=== PATIENT | male | born 2005 | race Caucasian/White ===

== ENCOUNTER 2024-07-17 17:43 | Outpatient (CLI) | payer BC, SELFPAY | END 2024-07-17 17:44 | disposition home or self-care (01) | LOC: AMB 07-30 09:21 | PROVIDERS: Visit Provider Family Medicine | DX: I49.9 Cardiac arrhythmia, unspecified (principal) | CPT/HCPCS: A0425; A0427 ==

== ENCOUNTER 2024-07-17 18:20 | Emergency (ER) | payer BC, SELFPAY ==
[2024-07-17] VITALS (36 sets, daily range): BP systolic 94–134; BP diastolic 50–74; PULSE 79–125; RESP 20; TEMP 36.6; O2SAT 94–100; BMI 22.8
--- NOTE | 2024-07-17 18:41 | CRLHL7_ITS ---
For Patients: As a result of the Cures Act, medical imaging exams and procedure reports are released immediately into your electronic medical record. You may view this report before your referring provider. If you have questions, please contact your health care provider. INDICATION: Cardiac arrhythmia TECHNIQUE: Chest radiograph 2 views COMPARISON: None FINDINGS: Mediastinum: The mediastinum is normal in appearance. The heart silhouette is normal in size and morphology. A left cardiac defibrillator is noted. Lung: Both lungs are unremarkable in appearance. No sign of pleural effusion seen. No pneumothorax is identified. Bone and Soft tissue: Unremarkable for age. IMPRESSION: 1. No acute cardiopulmonary disease is seen. Dictated by Yusef Hamilton MD @ 07/17/2024 7:23:27 PM Dictated by: Yusef Hamilton MD @ 07/17/2024 19:25:54 (Electronically Signed)
--- NOTE | 2024-07-17 18:43 | ED_ITS ---
<Statement entered by Re Sneed MD - 07/18/24 16:45> I did not contribute to this document, no billing HPI - General Adult General Chief complaint: Arrhythmia/Palpitations Stated complaint: AED activation Time Seen by Provider: 07/17/24 18:25 Source: patient and EMS Mode of arrival: EMS Limitations: no limitations History of Present Illness HPI narrative: 18-year-old male presents to the emergency department for evaluation of defibrillator firing. This happened about 8 times in a consecutive just few minute. Shortly prior to arrival. He was engaged in room man take recreational activities with his girlfriend, she is a student at [employer]. He is up visiting from [place]. Patient has a very notable history of cardiomyopathy that was diagnosed in January. He initially started experiencing orthopnea and ultimately presented after about a week of this to the [facility] Emergency Department. 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 Defibrillator was just placed about 3 weeks ago. It has never previously fired. He had a follow-up echo on 07/03 and reports that his EF was right around 30% which per him is showing a little bit of improvement. He does not believe he has any history of valvular disease, he is not anticoagulated. He is feeling a little achy through the chest and back now but he attributes this to a defibrillator. He had no symptoms leading up to the firing of the defibrillator like shortness of breath or chest pain or syncope. His girlfriend was with him and actually felt the defibrillator fire as well. It is unclear if the defibrillator was detecting exertional tachycardia or an abnormal rhythm. I do not have the ability to interrogate the device here. He says that he has been well, no recent fevers, no trauma or injury. Does admit that he did not eat well today. He awoke at about 12 30 packed is things quickly and got on the road to see his girlfriend as planned. Has been taking his medications as prescribed. No prior similar episodes. Significant other appropriately called 911. Other than the cardiomyopathy and defibrillator placement, his past medical history is benign. Other than the defibrillator placement, no other surgeries. Medications are spironolactone, Entresto, Jardiance, metoprolol and torsemide. Nonsmoker. No recreational drugs. No alcohol. ROS is notable for the cardiovascular symptoms only, otherwise denies times 12 systems. Related Data Allergies Allergy/AdvReac Type Severity Reaction Status Date / Time No Known Drug Allergies Allergy Verified 07/17/24 18:27 Exam Const: Vital Signs, click to edit/add: Vital Signs - 24 hr 07/17/24 18:24 07/17/24 18:26 07/17/24 18:27 Temperature 98 F Pulse Rate 110 H 111 H Pulse Rate [Pulse Oximeter] 107 H Respiratory Rate 20 Blood Pressure 121/74 Blood Pressure [Le ft Upper Arm] 121/74 Pulse Oximetry 100 100 100 Oxygen Delivery Me thod Room Air 07/17/24 18:30 07/17/24 18:32 07/17/24 18:45 Temperature Pulse Rate 108 H 108 H 102 H Pulse Rate [Pulse Oximeter] Respiratory Rate Blood Pressure 107/66 Blood Pressure [Le ft Upper Arm] Pulse Oximetry 100 100 97 Oxygen Delivery Me thod 07/17/24 19:03 07/17/24 19:05 07/17/24 19:15 Temperature Pulse Rate 97 116 H 99 Pulse Rate [Pulse Oximeter] Respiratory Rate Blood Pressure 108/61 Blood Pressure [Le ft Upper Arm] Pulse Oximetry 99 100 100 Oxygen Delivery Me thod 07/17/24 19:30 07/17/24 19:35 07/17/24 19:45 Temperature Pulse Rate 93 116 H 125 H Pulse Rate [Pulse Oximeter] Respiratory Rate Blood Pressure Blood Pressure [Le ft Upper Arm] Pulse Oximetry 99 98 95 Oxygen Delivery Me thod 07/17/24 20:00 07/17/24 20:02 07/17/24 20:15 Temperature Pulse Rate 98 102 H 96 Pulse Rate [Pulse Oximeter] Respiratory Rate Blood Pressure 115/50 L Blood Pressure [Le ft Upper Arm] Pulse Oximetry 100 98 98 Oxygen Delivery Me thod 07/17/24 20:30 07/17/24 20:32 07/17/24 20:45 Temperature Pulse Rate 102 H 93 97 Pulse Rate [Pulse Oximeter] Respiratory Rate Blood Pressure 122/73 Blood Pressure [Le ft Upper Arm] Pulse Oximetry 99 98 94 Oxygen Delivery Me thod 07/17/24 21:00 07/17/24 21:01 07/17/24 21:15 Temperature Pulse Rate 86 89 85 Pulse Rate [Pulse Oximeter] Respiratory Rate Blood Pressure 100/58 L Blood Pressure [Le ft Upper Arm] Pulse Oximetry 99 98 98 Oxygen Delivery Me thod 07/17/24 21:30 07/17/24 21:33 07/17/24 21:45 Temperature Pulse Rate 90 96 101 H Pulse Rate [Pulse Oximeter] Respiratory Rate Blood Pressure 134/56 L Blood Pressure [Le ft Upper Arm] Pulse Oximetry 99 99 100 Oxygen Delivery Me thod 07/17/24 22:00 07/17/24 22:02 07/17/24 22:15 Temperature Pulse Rate 90 91 95 Pulse Rate [Pulse Oximeter] Respiratory Rate Blood Pressure 115/65 Blood Pressure [Le ft Upper Arm] Pulse Oximetry 96 98 98 Oxygen Delivery Me thod 07/17/24 22:30 07/17/24 22:32 07/17/24 22:45 Temperature Pulse Rate 95 89 93 Pulse Rate [Pulse Oximeter] Respiratory Rate Blood Pressure 113/69 Blood Pressure [Le ft Upper Arm] Pulse Oximetry 99 98 98 Oxygen Delivery Me thod 07/17/24 23:00 07/17/24 23:01 07/17/24 23:15 Temperature Pulse Rate 87 88 93 Pulse Rate [Pulse Oximeter] Respiratory Rate Blood Pressure 105/63 Blood Pressure [Le ft Upper Arm] Pulse Oximetry 95 96 98 Oxygen Delivery Me thod 07/17/24 23:30 07/17/24 23:32 07/17/24 23:45 Temperature Pulse Rate 84 79 96 Pulse Rate [Pulse Oximeter] Respiratory Rate Blood Pressure 94/70 Blood Pressure [Le ft Upper Arm] Pulse Oximetry 98 98 99 Oxygen Delivery Me thod Documenting provider has reviewed patient's vital signs: yes Common normals: no apparent distress and alert General appearance: well kempt Other: Friendly, cooperative, no signs of intoxication. Great historian. HENMT: Common normals: normocephalic, moist oral mucous membranes and oropharynx normal Head and scalp: normocephalic Mouth: oral and palatal mucosa normal Eye: Common normals: conjunctivae normal General eye: normal appearance of both eyes Conjunctiva: conjunctiva(e) normal Neck & C-Spine: Common normals: full ROM and no lymphadenopathy Chest: Other: Surgical scarring on the chest consistent with recent AICD placement but looks great. No surrounding redness, drainage, healing well. Resp: Common normals: normal respiratory effort, no use of accessory muscles and clear to auscultation bilaterally Effort & inspection: able to speak in complete sentences Auscultation: clear to auscultation bilaterally Cardio: Common normals: regular rate, regular rhythm, S1 normal heart sound, S2 normal heart sound and no murmurs Rate: regular rate Rhythm: regular rhythm Heart sounds: S1 normal and S2 normal GI: Common normals: Normal to inspection, nondistended, normoactive bowel sounds present, soft to palpation, non-tender, no hepatosplenomegaly and no masses Palpation: soft and no hepatosplenomegaly Extremity: Common normals: normal to inspection and no pedal edema Neuro: Common normals: moves all extremities Sensorium/orientation: alert Psych: Appearance: well kempt Attitude: engaged Insight: insight good Judgement: judgment good Skin: Common normals: no rashes or lesions noted General skin exam: no rashes or lesions noted Course Course ED Course: 18-year-old male with history of cardiomyopathy, defibrillator fired about 8 times. I question whether this was an arrhythmia or exertional tachycardia that triggered his defibrillator. I have called [facility] for advice and guidance. In the meantime, basic metabolic panel, CBC, EKG, environmental monitoring technician. Will give a 500 mL normal saline bolus and obtain chest x-ray to look for any signs of overt heart failure. Await recommendations. Reevaluation(s) Time of Reevaluation #1: 23:59 Reevaluation #1: Patient has remained in sinus rhythm, current rate is around 90. He has remained asymptomatic and has had no further firing of his defibrillator. Phill soriano, after speaking with the [facility] triage nurse, call was placed at 6:42 p.m.. It took about an hour to receive the initial call back and it was recommended that we attempt to interrogate his device. We do not have the technology for this and this was relayed to them at the initial call. He has a remote transmission device back in [place]. We were able to send a family friend down to the [place] to retrieve the device and bring it to us. This of course was a couple of hour delay. Patient had not finished setting up the device and ultimately this had to be done prior to attempts to interrogate remotely. Several calls to [facility] [employer] and to the [facility] triage line were made. Ultimately, they have recommended now that we transfer the patient for adjustment of the defibrillator. Based on 6 different phone calls, I have spent 2-1/2 hours of direct management time on this patient in critical care time where I was unable to care for other patients during this time. Counseled patient on the recommendations from the cardiac triage officer. Ambulance transfer was recommended and offered, he declines this at this time and will be going by private car. Per the triage nurse, I do not need to call the ED in advance. Patient will be discharged from our facility to go directly to [facility] ED in [place]. Vital Signs Vital signs: Initial Vital Signs Pulse Rate 110 H 07/17/24 18:24 Blood Pressure 121/74 07/17/24 18:24 Blood Pressure Mean 89 07/17/24 18:24 Pulse Oximetry 100 07/17/24 18:24 Vital Signs Pulse Rate 110 H 07/17/24 18:24 Blood Pressure 121/74 07/17/24 18:24 Pulse Oximetry 100 07/17/24 18:24 Temperature 98 F 07/17/24 18:27 Pulse Rate 96 07/17/24 23:45 Respiratory Rate 20 07/17/24 18:27 Blood Pressure 94/70 07/17/24 23:32 Pulse Oximetry 99 07/17/24 23:45 Oxygen Delivery Method Room Air 07/17/24 18:27 Medications Administered Medications: Discontinued Medications Generic Name Dose Route Start Last Admin Trade Name Freq PRN Reason Stop Dose Admin Sodium Chloride 500 mls @ 500 mls/hr 07/17/24 18:40 07/17/24 20:20 0.9 % Sodium Chloride 500 Ml IV 07/17/24 19:39 Infused .Q1H ONE Infusion Medical Decision Making Lab Data Lab results reviewed: Yes I reviewed the patient's lab results Lab results narrative: Labs all reassuring. Labs: Lab Results 07/17/24 Range/Units 19:08 WBC 9.12 (4.50-11.00) K/uL RBC 5.16 (4.30-5.90) m/uL Hgb 14.9 (13.5-17.5) gm/dL Hct 43.7 (37.0-53.0) % MCV 85 (80-100) fL MCH 29 (26-34) pg MCHC 34 (32-36) gm/dL RDW Coeff of Odilia 12.0 (11.5-15.5) % Plt Count 248 (140-440) K/uL Neut % (Auto) 75.9 H (42.0-72.0) % Lymph % (Auto) 16.0 L (20-44) % Grainger % (Auto) 6.7 (0.0-11.0) % Eos % (Auto) 0.8 (0.0-7.0) % Baso % (Auto) 0.3 (0.0-3.0) % Neut # (Auto) 6.90 (1.7-7.0) K/uL Lymph # (Auto) 1.50 (0.90-2.90) K/uL Grainger # (Auto) 0.60 (0.00-0.90) K/UL Eos # (Auto) 0.07 (0.00-0.50) K/uL Baso # (Auto) 0.03 (0.00-0.30) K/uL Abs Immat Gran (auto) 0.03 (0.00-0.30) K/uL Imm/Tot Granulo (auto) 0.3 % Sodium 138 (135-149) mmol/L Potassium 3.2 L (3.6-5.1) mmol/L Chloride 101 (96-114) mmol/L Carbon Dioxide 25 (20-32) mmol/L Anion Gap 12 (7-15) mEq/L BUN 17 (5-24) mg/dL Creatinine 1.2 (0.5-1.5) mg/dL Estimated Creat Clear 94.50 Estimated GFR 89 ml/min Glucose 103 (60-115) mg/dL Calcium 10.1 (8.4-10.6) mg/dL NT-Pro-B Natriuret Pep 1530 pg/mL Imaging Data Chest x-ray: Attestation: I have reviewed the pertinent imaging results. My impression: Other than some mild cardiomegaly, normal chest x-ray. No pulmonary edema or pleural effusions Radiologist's impression: IMPRESSION: 1. No acute cardiopulmonary disease is seen. Dictated by Yusef Hamilton MD @ 07/17/2024 7:23:27 PM ECG Data Attestation: I personally reviewed and interpreted this ECG as follows: Prior ECG tracings: not available for review Interpretation: Sinus tachycardia with a rate of 103. Definitely criteria for LVH and some repolarization changes that I suspect are chronic in nature. Unfortunately do not have a comparison EKG but I do not suspect that this is ischemia. Discharge Plan Discharge Clinical Impression: Disorder of defibrillator function Patient Disposition: [facility] Emergency Department Hospital Discharge Location: [facility] Condition: Stable Additional Instructions: Thank you for having someone retrieve your transmission device. After consult with the team from [employer] and ultimately relaying information to the [facility] team, they have now recommended that you come to the emergency department to have adjustments made to your defibrillator. This was at the recommendation of france Cash and working with the triage nurse, Ramy. Please relay this information to the ER team, as it will likely help them find those notes faster. You were offered ambulance transport to [facility], you have elected to go by private car. Please go directly to the emergency department. If you have difficulty in the interim, the number is [phone]. The [facility] number is [phone], they can give you additional feedback regarding the flashing box that you are seeing on your device. Activity Level: Activity as Tolerated Discharge Diet: Regular
[2024-07-17 19:14] LABS: Basophils Absolute Auto 0.03 K/uL (0.00-0.30); Basophils Percent Auto 0.3 % (0.0-3.0); Eosinophils Absolute Auto 0.07 K/uL (0.00-0.50); Eosinophils Percent Auto 0.8 % (0.0-7.0); Hematocrit 43.7 % (37.0-53.0); Hemoglobin* 14.9 gm/dL (13.5-17.5); Immature Granulocytes Abs Auto 0.03 K/uL (0.00-0.30); Immature Granulocytes Pct Auto 0.3 %; Mean Corpuscular HGB Conc 34 gm/dL (32-36); Mean Corpuscular Hemoglobin 29 pg (26-34); Mean Corpuscular Volume 85 fL (80-100); Monocytes Percent Auto 6.7 % (0.0-11.0); Neutrophils Percent Auto 75.9 % (42.0-72.0); Platelet Count* 248 K/uL (140-440); Red Blood Count 5.16 m/uL (4.30-5.90); Slide Review Reflex No; White Blood Count* 9.12 K/uL (4.50-11.00)
[2024-07-17] MEDS: 0.9 % SODIUM CHLORIDE 500 ML 500 ML IV (19:17)
--- OUTSIDE RECORDS SUMMARY | 2024-07-17 19:27 | XMS_ITS ---
Author Organization [facility] Address [address] [place] [address] Care Team Providers Care Housing Assistant Property Manager Name Role Phone Unavailable Unavailable Unavailable Surgery Details Not on file Complications Check Surgery Details section. Procedure Estimated Blood Loss Check Surgery Details section. Procedure Findings Check Surgery Details section. Procedure Specimens Taken Check Surgery Details section.
--- OUTSIDE RECORDS SUMMARY | 2024-07-17 19:27 | XMS_ITS | Encounter Summary ---
Author Organization [facility] Address [address] [place] [id number] Care Team Providers Care Spot Machine Operator Name Role Phone Subha Benito M.D., M.S. Primary Care Provide r Encounter Details Date Type Department Care Team (Latest Contact Info) Description 07/10/2024 9:39 AM POLICE CAPTAIN [employer]CINCT - 07/10/2024 11:59 PM POLICE CAPTAIN PRECINCT Hospital Encounter Department of Cardiovascular Diseases in [place], [place] [address] [place] [phone] Dheeraj Sandoval M.D., M.P.H. [address] [place] [phone] Arrived Discharge Disposition: Home or Self Care Social History Tobacco Use Types Packs/Day Years Used Date Smoking Tobacco: Never Smokeless Tobacco: Former Chew Quit: 10/21/2023 Alcohol Use Standard Drinks/Week Comments Yes 2 (1 standard drink = 0.6 oz pur e alcohol) [facility] Utilities Answer Date Recorded In the past 12 months has e electric, gas, oil, or water company threatened to shut off services in your home? No 01/30/2024 Humiliation, Afraid, Rape, and Kick questionnair e Answer Date Recorded Within the last year, have y ou been afraid of your partner or ex-partner? No 01/20/2024 Within the last year, have y ou been humiliated or emotionally abused in other ways by your partner or ex-partner? No Within the last year, have y ou been kicked, hit, slapped, or otherwise physically hurt by your partner or ex-partner? No 01/20/2024 Within the last year, have y ou been raped or forced to have any kind of sexual activity by your partner or ex-partner? No 01/20/2024 PHQ-2 Answer Date Recorded PHQ-2 Score 0 01/30/2024 Exercise Vital Sign Answer Date Recorde d On average, how many days pe r week do you engage in moderate to strenuous exercise (like a brisk walk)? 0 days Minutes of Exercise per Session Not on file 01/30/2024 Hunger Vital Sign Answer Date Recorded Within the past 12 months, y ou worried that your food would run out before you got the money to buy more. Never true 01/30/20 Within the past 12 months, t he food you bought just didn't last and you didn't have money to get more. Never true 01/30/2024 PRAPARE - Transportation Answer Date Re corded In the past 12 months, has l ack of transportation kept you from medical appointments or from getting medications? No 01/06 In the past 12 months, has l ack of transportation kept you from meetings, work, or from getting things needed for daily living? No 01/30/2024 Depression Answer Date Recor ded PHQ-9-M Total Score (5-9=Mil d, 10-14=Moderate, 15-19=Moderately Severe, 20-27=Severe) 4 11/29/2020 Nutrition Answer Date Recorded On average, how many serving s of fruits and vegetables do you eat per day (serving size is equal to 1 cup or approximately the size of a tennis ball)? 0-2 01/30/2024 Dental Answer Date Recorded Dental: Regular Dentist Yes 01/30/20 Employment Answer Date Recorded Employment status N/A 01/30/2024 Housing Stability Answer Date Recorded What is your living situation today? I have a [facility] place to live 01/30/2024 Sex and Gender Information Value Date Recorded Sex Assigned at Male 01/30/2024 10:17 AM CDT Legal Sex Male 5:27 AM POLICE CAPTAIN PRECIN[employer] Gender Identity Male 01/30/2024 10:17 AM CDT Sexual Orientation Straight 01/30/2024 10 :17 AM CDT documented as of this encounter Medications at Time of Discharge empagliflozin (Jardiance) 10 mg tablet Take 1 tablet (10 mg total) by mouth daily before morning meal. 90 tablet 3 04/27/2024 04/27/2025 metoprolol succinate (Toprol XL) 100 mg 24 hr tablet Take 1 tablet (100 mg total) by mouth daily. Do not crush or chew. 30 tablet 1 07/06/2024 4:35 PM POLICE CAPTAIN PRECINCT 07/06/2024 09/04/2024 sacubitriL-valsar cespedes (Entresto) 49-51 mg per tablet Take 1 tablet by mouth 2 (two) times a day. 180 tablet 3 06/08/2024 06/03/2025 spironolactone (Aldactone) 25 mg tablet Take 0.5 tablets (12.5 mg total) by mouth daily. 45 tablet 3 06/25/2024 06/25/2025 torsemide (Demadex) 20 mg tabletIndications :Cardiomyopathy Dilated (HCC) Take 2 tablets (40 mg total) by mouth daily. 180 tablet 3 07/06/2024 4:35 PM POLICE CAPTAIN PRECINCT 06/25/2024 06/25/2025 documented as of this encounter Plan of Treatment Upcoming Encounters Date Type Department Care Team (Late st Contact Info) Description 09/16/2024 10:00 AM CDT Appointment Department of Cardiovascular Diseases in [place], [place] [address] [place] [phone] Priyank Metzger M.D., Ph.D. [address] [place] [phone] documented as of this encounter Procedures Procedure Name Priority Date/Time Associated Diagnosis Comments INTERFACED REMOTE DEVICE CHECK Routine 07/10/2024 9:39 AM POLICE CAPTAIN PRECINCT documented in this encounter Results * CAR CARDIAC DEVICE INTERROGATION (07/10/2024 9:39 AM POLICE CAPTAIN PRECINCT) Pathologist [facility] Date Time Interrogation Session [id number] [facility] Type Interrogation Session Remote [facility] Implantable Pulse Generator Speech Pathologist [employer] [facility] Implantable Pulse Generator Type Defibrillator [facility] Implantable Pulse Generator Model Acticor 7 VR-T DX [facility] Implantable Pulse Generator Serial Number [id number] [facility] Implantable Pulse Generator Implant Date 20240618 [facility] Battery Remaining Percentage 100.00 % [facility] Battery Voltage 3.120 [facility] Battery C D REACTOR OPERATOR Trigger 2.850 [facility] Battery Status JAIME [facility] [employer] [facility] Kevin Statistic RV Percent Paced 0.00 [facility] Atrial Tachy Statistic AT/AF [place] Percent 0.00 [facility] Lead Channel Sensing Intrinsic Amplitude 8.000 [facility] Lead Channel Setting Sensing Sensitivity 1.00 [facility] Lead Channel Measurements Date and Time 20240710 [facility] Lead Channel Sensing Intrinsic Amplitude 20.000 [facility] Lead Channel Setting Sensing Sensitivity 0.80 [facility] Lead Channel Impedance Value 579 [facility] Lead Channel Pacing Threshold Amplitude 0.900 [facility] Lead Channel Pacing Threshold Pulse Width 0.4 [facility] Lead Channel Measurements Date and Time 20240710 [facility] Lead Channel Setting Pacing Amplitude 3.500 [facility] Lead Channel Setting Pacing Pulse Width 0.4 [facility] Kevin Setting Mode (NBG Code) VDI [facility] Kevin Setting Lower Rate Limit 40 [facility] Therapy Statistic Recent Shocks Delivered 0 [facility] Therapy Statistic Recent Shocks Aborted 0 [facility] Therapy Statistic Recent ATP Delivered 0 [facility] Murj Shock Measured Impedance 64 [facility] Lead Channel Setting Sensing Polarity Bipolar [facility] Lead Channel Setting Sensing Polarity Bipolar [facility] Lead Channel Setting Pacing Polarity Bipolar [facility] Lead Channel Pacing Threshold Polarity Bipolar [facility] Zone Setting Type Category Zone_ATAF [facility] Murj Rate 1 220 [facility] Zone Setting Status Monitor [facility] Murj Zone ID 7 [facility] Zone Setting Type Category VF [facility] Murj Rate 1 231 [facility] Murj Therapies Burst,40.0J,40.0J ,40.0J x 6 [facility] Zone Setting Status On [facility] Murj Zone ID 8 [facility] Zone Setting Type Category VT [facility] Murj Rate 1 182 [facility] Zone Setting Status Monitor [facility] Murj Zone ID 9 [facility] Zone Setting Type Category [place] [facility] Murj Rate 1 188 [facility] Murj Therapies 2 x Burst,40.0J,40.0J ,40.0J x 6 [facility] Zone Setting Status On [facility] Murj Zone ID 10 [facility] Implantable Lead Speech Pathologist Other [facility] Implantable Lead Model [id number] [facility] Implantable Lead Location Right Ventricle [facility] Implantable Lead Connection Status Connected [facility] Implantable Lead Serial Number [id number] [facility] Implantable Lead Polarity Type Unknown [facility] Implantable Lead Special Function Lead length: 65.00 cm [facility] Anatomical Region Laterality Modality Other 07/13/2024 9:54 AM POLICE CAPTAIN [employer]CIN[employer] Impressions 07/13/2024 9:54 AM POLICE CAPTAIN PRECINCT Encounter Impression: Title: Unscheduled Remote * Reason: RV Threshold Unsuccessful - The EGM for the RV threshold test appears to show an unsuccessful test related to intrinsic conduction. We will continue to monitor * Alerts or Events: 1 * Battery: Battery is at 100%, * Sensing, impedance and thresholds reviewed * Programmed parameters reviewed * Presenting rhythm: None provided * Heart Rate Histograms reviewed * No significant changes noted Plan: Routine remote follow up and as needed. This patient underwent device interrogation. I agree that the device interrogation was medically indicated to provide appropriate care and continue routine device interrogations as indicated. Encounter Summary: This report includes 1 transmission that was received on 2024-07-10. Battery, lead impedance, sensing amplitude and pacing threshold data was reviewed. Narrative Procedure Note Dheeraj Sandoval M.D., M.P.H. - 07/13/2024 IMPRESSION: Encounter Impression: Title: Unscheduled Remote * Reason: RV Threshold Unsuccessful - The EGM for the RV threshold testappears to show an unsuccessful test related to intrinsic conduction. Wewill continue to monitor * Alerts or Events: 1 * Battery: Battery is at 100%, * Sensing, impedance and thresholds reviewed * Programmed parameters reviewed * Presenting rhythm: None provided * Heart Rate Histograms reviewed * No significant changes noted Plan: Routine remote follow up and as needed. This patient underwent device interrogation. I agree that the deviceinterrogation was medically indicated to provide appropriate care andcontinue routine device interrogations as indicated. Encounter Summary: This report includes 1 transmission that was receivedon 2024-07-10. Battery, lead impedance, sensing amplitude and pacingthreshold data was reviewed. us Dheeraj Sandoval M.D., M.P.H. CV IMPLANTABLE CARDI AC DEVICE Final Result documented in this encounter Visit Diagnoses Not on filedocumented in this encounter Additional Health Concerns Assessment Noted Time PHQ-9 Depression Total Score: 4 11/30/19 21 1:39 PM CDT documented as of this encounter Care Teams Spot Machine Operator Relationship Specialty Start Date End Date Subha Benito M.D., M.S. [address] [place] [phone] PCP - General Family Medicine 03 documented as of this encounter
--- OUTSIDE RECORDS SUMMARY | 2024-07-17 19:27 | XMS_ITS | Referral Summary ---
Author Organization [facility] Address [address] [place] [address] Care Team Providers Care Us Marketing Director Name Role Phone Subha Benito M.D., M.S. Primary Care Provide r Source Comments Patient records contain information from all sites at [facility]. For routine questions regarding patient records, call [phone] during business hours, M-F 8:00 AM - 5:00 PM Central Time. Record requests for emergency care only can be directed to [phone] at any time.[facility] Encounters Date Type Department Care Team Description 07/10/2024 9:39 AM PACKING ROOM INSPECTOR - 07/10/2024 11:59 PM PACKING ROOM INSPECTOR Hospital Encounter Department of Cardiovascular Diseases in [place], [place] [address] [place] [address] Dheeraj Sandoval M.D., M.P.H. Arrived Discharge Disposition: Home or Self Care 07/03/2024 7:33 AM PACKING ROOM INSPECTOR - 07/03/2024 11:59 PM PACKING ROOM INSPECTOR Hospital Encounter Department of Cardiovascular Diseases in [place], [place] [address] [place] [phone] Ana Paula Arzola M.D. Cardiomyopathy (HCC) Discharge Disposition: Home or Self Care 06/25/2024 1:00 PM PACKING ROOM INSPECTOR Office Visit Department of Family Medicine, [address] [phone] Subha Benito M.D., M.S. Chronic Systolic (Congestive) Heart Failure (HCC) (Primary Dx); Cardiomyopathy Dilated (HCC); Presence Of Automatic (Implantable) Cardiac Defibrillator With Synchronous Cardiac Pacemaker (ICD And AICD) 06/19/2024 Clinical Communication Department of Cardiovascular Medicine in [address] [phone] Anna Nunn M.B.B.S. DEVICE REGISTRATION (ICD IMPLANT ///) 06/19/2024 7:58 AM PACKING ROOM INSPECTOR - 06/19/2024 11:59 PM PACKING ROOM INSPECTOR Hospital Encounter Department of Cardiovascular Diseases in [address] [phone] Crispin Arevalo M.B.B.S. Cardiomyopathy Dilated (HCC); Cardiomyopathy (HCC) Discharge Disposition: Home or Self Care 06/18/2024 Orders Only Department of Cardiovascular Medicine in [place], [place] [address] [place] [phone] Miguel Angel Ahmadi R.N. Aftercare Cardiac Defibrillator (Primary Dx) 06/18/2024 9:53 AM PACKING ROOM INSPECTOR Anesthesia Event Division of Cardiovascular Diseases in [address] [phone] Darling Ahn, KYLE, BERNARDO, DNAP 06/18/2024 9:58 AM PACKING ROOM INSPECTOR - 06/18/2024 12:32 PM PACKING ROOM INSPECTOR Surgery Division of Cardiovascular Diseases in [address] [phone] Anna Nunn M.B.B.S. ICD IMPLANT - SINGLE CHAMBER 06/18/2024 7:58 AM PACKING ROOM INSPECTOR - 06/18/2024 4:36 PM PACKING ROOM INSPECTOR Hospital Encounter Division of Cardiovascular Diseases in [address] [phone] Anna Nunn M.B.B.S. Cardiomyopathy Dilated (HCC); Cardiomyopathy (HCC) Discharge Disposition: Home or Self Care 06/15/2024 Refill Department of Cardiovascular Medicine in [place], [place] [address] [place] [phone] Kaitlynn Jiménez M.D. Med Refill 06/08/2024 8:20 AM PACKING ROOM INSPECTOR - 06/08/2024 11:59 PM PACKING ROOM INSPECTOR Hospital Encounter Department of Laboratory Medicine and Pathology, [facility] in [place], [place] [address] [place] [phone] Kaitlynn Jiménez M.D. Cardiomyopathy (HCC); Cardiomyopathy Dilated (HCC) Discharge Disposition: Home or Self Care 05/29/2024 Clinical Communication Department of Cardiovascular Medicine in [address] [phone] Mixing And Molding Machine OperatorHany M.D. 05/29/2024 10:30 AM PACKING ROOM INSPECTOR Education Department of Cardiovascular Medicine in [place], [place] [address] [place] [phone] Crispin Arevalo M.B.B.S. Leah Barrera M.S.N., R.N. Cardiomyopathy Dilated (HCC) (Primary Dx); Cardiomyopathy (HCC) 05/29/2024 9:00 AM PACKING ROOM INSPECTOR Comprehensive Visit Department of Cardiovascular Medicine in [place], [place] [address] [place] [phone] Crispin Arevalo M.B.B.S. Cardiomyopathy Dilated (HCC) (Primary Dx) 05/28/2024 4:45 PM PACKING ROOM INSPECTOR Clinical Communication Virtual Review in [place], [place] [address] [place] [address] Pre-visit Intake 04/23/2024 Refill Department of Cardiovascular Medicine in [place], [place] [address] [place] [phone] Kiatlynn Jiménez M.D. Med Refill 04/22/2024 Refill Department of Cardiovascular Medicine in [place], [place] [address] [place] [phone] Kaitlynn Jiménez M.D. Med Refill 04/22/2024 7:40 AM CDT - 04/22/2024 11:59 PM CDT Hospital Encounter Department of Laboratory Medicine and Pathology, [facility], in [place], [place] [address] [place] [phone] Kaitlynn Jiménez M.D. Cardiomyopathy Dilated (HCC) Discharge Disposition: Home or Self Care from Last 3 Months Allergies No known active allergies Medications empagliflozin (Jardiance) 10 mg tablet Take 1 tablet (10 mg total) by mouth daily before morning meal. 90 tablet 3 04/27/20 24 025 Active sacubitriL-jordy sartan (Entresto) 49-51 mg per tablet Take 1 tablet by mouth 2 (two) times a day. 180 tablet 3 06/08/20 24 025 Active spironolactone (Aldactone) 25 mg tablet Take 0.5 tablets (12.5 mg total) by mouth daily. 45 tablet 3 06/25/20 24 025 Active torsemide (Demadex) 20 mg tabletIndicati ons:Cardiomyop athy Dilated (HCC) Take 2 tablets (40 mg total) by mouth daily. 180 tablet 3 07/06/2024 4:35 PM PACKING ROOM INSPECTOR 06/25/20 24 025 Active metoprolol succinate (Toprol XL) 100 mg 24 hr tablet Take 1 tablet (100 mg total) by mouth daily. Do not crush or chew. 30 tablet 1 07/06/2024 4:35 PM PACKING ROOM INSPECTOR 07/06/20 24 025 Active torsemide (Demadex) 20 mg tabletIndicati ons:Cardiomyop athy Dilated (HCC) Take 2 tablets (40 mg total) by mouth daily. 180 tablet 3 02/21/20 24 024 Discontinued(Re order) spironolactone (Aldactone) 25 mg tablet Take 0.5 tablets (12.5 mg total) by mouth daily. 45 tablet 1 03/24/20 24 024 Discontinued(Re order) metoprolol succinate (Toprol XL) 50 mg 24 hr tablet Take 1.5 tablets (75 mg total) by mouth daily. Do not crush or chew tablet. 45 tablet 2 06/19/2024 1:03 PM PACKING ROOM INSPECTOR 06/08/20 24 024 Discontinued(Re order) oxyCODONE (Roxicodone) 5 mg immediate release tabletIndicati ons:Acute Pain Take 1 tablet (5 mg total) by mouth every 6 (six) hours as needed for pain for up to 3 days Indication: Acute Pain. 12 tablet 06/18/2024 4:53 PM PACKING ROOM INSPECTOR 06/18/20 24 024 metoprolol succinate (Toprol XL) 50 mg 24 hr tablet Take 1.5 tablets (75 mg total) by mouth daily. Do not crush or chew tablet. 45 tablet 2 06/25/20 24 024 Discontinued Active Problems Problem Noted Date Diagnosed Date Presence Of Automatic (Impla ntable) Cardiac Defibrillator With Synchronous Cardiac Pacemaker (ICD And AICD) 06/18/2024 Overview (06/18/2024): Status post single chamber ICD implant 06/18/2024 Chronic Systolic (Congestive) Heart Failure 06/07 Cardiomyopathy Dilated 01/21/2024 Cardiomyopathy 01/20/2024 Fracture Clavicle Closed Subsequent Right 2017 Retractile Testis 07/10/2007 Resolved Problems Problem Noted Date Diagnosed Date Resolved Date Difficulty Walking Orthopedic Knee Cause 07/18/2016 01/30/2024 Fracture Patella Closed Initial 07/11/2016 12/06/2017 Immunizations Name Administration Dates Next Due 9vHPV 04/09/2016,12/02/2015,10/06/2015 DTaP (Daptacel) 07/20/2008 DTaP (Infanrix, Tripedia) 07/20/2008 DTaP / Hib 11/30/2004 DTaP, Unspecified 01/27/2004,2003,09/24/19 04 HepA Pediatric/Adolescent 03/01/2021,(Deferred: Other - Parent unavailable) HepB Pediatric/Adolescent 04/26/2004 Hib-HepB 2003,2003 IPV 07/20/2008, 4,2003,2003 MCV4 (Menactra)(Discontinued) 03/01/2021 ,11/29/2020(Deferred: Other - Parent unavailable) MCV4, Unspecified 10/06/2015 MMR 07/20/2008,07/27/2004 PCV20 06/25/2024 PCV7 (discontinued) 11/30/2004, 4,2003,2003 SARS-COV-2 (COVID-19) - PFIZ ER (Discontinued)(12 years or older) 11/10/2020,10/20/2020 SARS-COV-2 (COVID-19) - PFIZ ER TS(Discontinued)(12 years or older) 10/03/2021 Tdap 10/06/2015 PEDRO 07/20/2008,07/27/2004 influenza LAIV (Nasal) (2 ye ars through 49 years) 08/11/2018,04/01/2015,04/08/2014,2012 influenza trivalent vaccine (6 months and older)(PF) 06/25/2024 influenza vaccine quad (FLUZONE/FLUARIX) (6 months and older)(PF) 05/05/2021,11/29/2020(Deferred: Patient decision),03/31/2019,04/10/2017, 016 Social History Tobacco Use Types Packs/Day Years Used Date Smoking Tobacco: Never Smokeless Tobacco: Former Chew Quit: 10/21/2023 Tobacco Cessation:Counseling Given: No Alcohol Use Standard Drinks/Week Comments Yes 2 (1 standard drink = 0.6 oz pur e alcohol) [facility] [employer] Answer Date Recorded In the past 12 months has e [employer], oil, or water [employer] threatened to shut off services in your [...] your living situation today? I have a [facility] place to live 01/30/2024 Sex and Gender Information Value Date Recorded Sex Assigned at Male 01/30/2024 10:17 AM CDT Legal Sex Male 5:27 AM PACKING ROOM INSPECTOR Gender Identity Male 01/30/2024 10:17 AM CDT Sexual Orientation Straight 01/30/2024 10 :17 AM CDT Last Filed Vital Signs Vital Sign Reading Time Taken Comments Blood Pressure 108/65 06/25/2024 12:49 PM PACKING ROOM INSPECTOR Pulse 65 06/25/2024 12:49 PM PACKING ROOM INSPECTOR Temperature 36.5 C (97.7 F) 06/18/2024 8:19 AM PACKING ROOM INSPECTOR Respiratory Rate 21 01/26/2024 11:3 0 AM CDT Oxygen Saturation 97% 06/18/2024 3:54 PM PACKING ROOM INSPECTOR Inhaled Oxygen Concentration - - Weight 71.5 kg (157 lb 10.1 oz) 06/18/2024 8:19 AM PACKING ROOM INSPECTOR Height 173.2 cm (5' 8.19) 06/18/2024 8:19 AM CS T Body Mass Index 23.83 06/18/2024 8:19 AM PACKING ROOM INSPECTOR Plan of Treatment Upcoming Encounters Date Type Department Care Team (Late st Contact Info) Description 09/16/2024 10:00 AM CDT Appointment Department of Cardiovascular Diseases in [place], [place] [address] [place] [phone] Priyank Metzger M.D., Ph.D. [address] [place] [address] Medical Devices Implanted Type Area Lead Software Developer Device Identifier Shelf Expiration Date Model / Serial / Lot Unknown [id number] Cardiac Lead Unknown [id number] / [id number] / Lead Icd Plx S Dx 65/15 - [id number] - [id number] Implanted:Qty : 1 on 06/18/2024 by Anna Nunn, M.B.B.S. at [facility] Cardiac Lead Left: Heart BIOTRON[employer] 02/04/2026 [id number] / [id number] / Icd Acticor Vr Df 4 - [id number] - [id number] Implanted:Qty : 1 on 06/18/2024 by Anna Nunn M.B.B.S. at [facility] Implant Cardiac Defibrillator Left: Chest [employer] 01/04/2026 [id number] / [id number] / Procedures Procedure Name Priority Date/Time Associated Diagnosis Comments INTERFACED REMOTE DEVICE CHECK Routine 07/10/2024 9:39 AM PACKING ROOM INSPECTOR (TTE) 2D ECHO DOPPLER COLOR Routine 07/03/2024 8:15 AM PACKING ROOM INSPECTOR Cardiomyopathy (HCC) ICD SINGLE CHAMBER INTERROGATION WITH PROGRAMMING Routine 06/19/2024 8:52 AM PACKING ROOM INSPECTOR Cardiomyopathy Dilated (HCC) Cardiomyopathy (HCC) DX CHEST AP OR PA AND LATERAL 2 VIEWS RAD - Routine (most inpatients and all outpatients) 06/18/2024 2:54 PM PACKING ROOM INSPECTOR ECG Routine 06/18/2024 1:13 PM PACKING ROOM INSPECTOR ADULT OXYGEN THERAPY Routine 06/18/2024 1:01 PM PACKING ROOM INSPECTOR ADULT OXYGEN THERAPY Routine 06/18/2024 1:01 PM PACKING ROOM INSPECTOR HEART RHYTHM PROCEDURE Routine 06/18/2024 12:41 PM PACKING ROOM INSPECTOR Cardiomyopathy Dilated (HCC) Cardiomyopathy (HCC) LDA ANE ARTERIAL LINE INSERTION Routine 06/18/2024 10:08 AM PACKING ROOM INSPECTOR NC ARTL CATH/CNULA MONITOR PERC Routine 06/18/2024 10:08 AM PACKING ROOM INSPECTOR CAR CARDIAC DEVICE INTERROGATION Routine 06/18/2024 9:04 AM PACKING ROOM INSPECTOR ECG Routine 06/08/2024 9:39 AM PACKING ROOM INSPECTOR Cardiomyopathy Dilated (HCC) Cardiomyopathy (HCC) BASIC METABOLIC PANEL, S/P Routine 06/08/2024 8:52 AM PACKING ROOM INSPECTOR Cardiomyopathy Dilated (HCC) Cardiomyopathy (HCC) CBC WITHOUT DIFFERENTIAL, B Routine 06/08/2024 8:52 AM PACKING ROOM INSPECTOR Cardiomyopathy Dilated (HCC) Cardiomyopathy (HCC) SODIUM, S/P Routine 04/22/2024 8:05 AM CDT Cardiomyopathy Dilated (HCC) POTASSIUM, S/P Routine 04/22/2024 8:05 AM CDT Cardiomyopathy Dilated (HCC) CREATININE WITH EGFR, S/P Routine 04/22/2024 8:05 AM CDT Cardiomyopathy Dilated (HCC) BUN (BLOOD UREA NITROGEN), S/P Routine 04/22/2024 8:05 AM CDT Cardiomyopathy Dilated (HCC) HIV-1/-2 AG AND AB SCREEN, PLASMA Routine 01/21/2024 8:53 AM CDT from Last 3 Months or Most Recently Relevant to Health Maintenance Results * CAR CARDIAC DEVICE INTERROGATION (07/10/2024 9:39 AM PACKING ROOM INSPECTOR) Date Time Interrogation Session [id number] [facility] Type Interrogation Session Remote [facility] Implantable Pulse Generator Lead Software Developer [employer] [facility] Implantable Pulse Generator Type Defibrillator [facility] Implantable Pulse Generator Model Acticor 7 VR-T DX [facility] Implantable Pulse Generator Serial Number [id number] [facility] Implantable Pulse Generator Implant Date 20240618 [facility] Battery Remaining Percentage 100.00 % [facility] Battery Voltage 3.120 F[facility] Battery TUGGER OPERATOR Trigger 2.850 [facility] Battery Status JAIME [facility] Kevin Statistic RV Percent Paced 0.00 [facility] Atrial Tachy Statistic AT/AF Zamora Percent 0.00 [facility] Lead Channel Sensing Intrinsic Amplitude 8.000 [facility] Lead Channel Setting Sensing Sensitivity 1.00 [facility] Lead Channel Measurements Date and Time 20240710 [facility] Lead Channel Sensing Intrinsic Amplitude 20.000 [facility] Lead Channel Setting Sensing Sensitivity 0.80 [facility] Lead Channel Impedance Value 579 [facility] Lead Channel Pacing Threshold Amplitude 0.900 [facility] Lead Channel Pacing Threshold Pulse Width 0.4 [facility] Lead Channel Measurements Date and Time 20240710 [facility] Lead Channel Setting Pacing Amplitude 3.500 [facility] Lead Channel Setting Pacing Pulse Width 0.4 [facility] Kevin Setting Mode (NBG Code) VDI [facility] Kevin Setting Lower Rate Limit 40 [facility] Therapy Statistic Recent Shocks Delivered 0 [facility] Therapy Statistic Recent Shocks Aborted 0 [facility] Therapy Statistic Recent ATP Delivered 0 [facility] Murj Shock Measured Impedance 64 [facility] Lead Channel Setting Sensing Polarity Bipolar [facility] Lead Channel Setting Sensing Polarity Bipolar [facility] Lead Channel Setting Pacing Polarity Bipolar [facility] Lead Channel Pacing Threshold Polarity Bipolar [facility] Zone Setting Type Category Zone_ATAF [facility] Murj Rate 1 220 [facility] Zone Setting Status Monitor [facility] Murj Zone ID 7 [...] [facility] Zone Setting Status Monitor [facility] Murj Zone ID 9 [facility] Zone Setting Type Category VT [facility] Murj Rate 1 188 [facility] Murj Therapies 2 x Burst,40.0J,40.0J ,40.0J x 6 [facility] Zone Setting Status On [facility] Murj Zone ID 10 [facility] Implantable Lead Lead Software Developer Other [facility] Implantable Lead Model [id number] [facility] Implantable Lead Location Right Ventricle [facility] Implantable Lead Connection Status Connected [facility] Implantable Lead Serial Number [id number] [facility] Implantable Lead Polarity Type Unknown [facility] Implantable Lead Special Function Lead length: 65.00 cm [facility] Anatomical Region Laterality Modality Other 07/13/2024 9:54 AM PACKING ROOM INSPECTOR Impressions 07/13/2024 9:54 AM PACKING ROOM INSPECTOR Encounter Impression: Title: Unscheduled Remote * Reason: [...] CV IMPLANTABLE CARDI AC DEVICE Final Result * (TTE) 2D ECHO DOPPLER COLOR (07/03/2024 8:15 AM PACKING ROOM INSPECTOR) [facility] Ejection Fraction 29 MC CV EIMS LV Mass Index 147 MC CV EIMS LV End-Diastolic Diameter 81 MC CV EIMS LV End-Systolic Diameter 70 MC CV EIMS LV End-Diastolic Volume 401 MC CV EIMS LV End-Systolic Volume 286 MC CV EIMS Left ventricular stroke volume index 44 MC CV EIMS Cardiac Output 4.67 MC CV EIMS Cardiac Index 2.53 MC CV EIMS LV Interventricular Septal Wall Thickness 7 MC CV EIMS LV Posterior Wall Thickness 7 MC CV EIMS LV Relative Wall Thickness 17 MC CV EIMS TR Vmax 2.43 MC CV EIMS RA Pressure 5 MC CV EIMS RV Systolic Pressure 29 MC CV EIMS MV regurgitant volume 70 MC CV EIMS Anatomical Region Laterality Modality Echocardiography 07/03/2024 7:35 AM PACKING ROOM INSPECTOR Impressions 07/03/2024 9:35 AM PACKING ROOM INSPECTOR Echocardiogram performed per left ventricular function protocol. Last full echocardiogram performed 01/21/2024. LEFT VENTRICLE:Severely enlarged left ventricular chamber size. Abnormal left ventricular geometry with eccentric left ventricular hypertrophy. Left ventricular mass index by 2D 147 g/m2. Calculated 2-D linear left ventricular ejection fraction 29%. Calculated 2-D biplane volumetric left ventricular ejection fraction of 29%. Calculated 3-D volumetric left ventricular ejection fraction 29%. Left ventricular cardiac index 2.53 l/min/m2. Left ventricular stroke volume index 44 ml/m2. Severe generalized left ventricular hypokinesis. Severely elevated left ventricular filling pressure. RIGHT VENTRICLE:Moderate-severely enlarged right ventricular chamber size. Moderate-severely reduced right ventricular systolic function. Estimated right ventricular systolic pressure 29 mmHg (right atrial pressure of 5 mmHg). ATRIA:Severely enlarged left atrial size by visual estimate. Mildly enlarged right atrial size by visual estimate. CARDIAC VALVES:Morphologically normal aortic valve. Trivial aortic valve regurgitation. Normal mitral valve leaflet thickness. Mitral annulus dilatation. Severe mitral valve regurgitation. Mitral regurgitation ERO (PISA) 0.41 cm2. Mitral regurgitant volume (PISA) 70 ml. Normal tricuspid valve. Mild tricuspid valve regurgitation. OTHER ECHO FINDINGS:Enlarged inferior vena cava size with normal inspiratory collapse (>50%). No intracardiac mass or thrombus, but the left atrial appendage cannot be visualized adequately with transthoracic echo to exclude thrombus in this location. Tiny circumferential pericardial effusion. For the complete report, see the Order-Level Documents. Narrative 07/03/2024 9:35 AM PACKING ROOM INSPECTOR For the complete report, see the Order-Level Documents. Hemodynamics Heart Rate: 60 BPM Blood Pressure: 100 / 60 mmHg ECG: Sinus rhythm with ectopics Final Impressions 1. Severely enlarged left ventricular chamber size, severe generalized hypokinesis, calculated 3-D volumetric ejection fraction 29% in the setting of severe mitral regurgitation. 2. Left ventricular cardiac index 2.53 l/min/m2. 3. Severely elevated left ventricular filling pressure in the setting of severe mitral regurgitation. 4. Moderate-severely enlarged right ventricular chamber size, moderate-severely reduced systolic function, estimated right ventricular systolic pressure 29 mmHg (right atrial pressure of 5 mmHg). 5. Severe mitral valve regurgitation (Eccentric mitral regurgitation, functional. Diminutive posterior leaflet and leaflet tenting. Flow reversals pulmonary vein.), ERO (PISA) 0.41 cm2 (which likely underestimates the severity of mitral regurgitation in the setting of a broad regurgitant jet.), regurgitant volume (PISA) 70 ml. 6. Tiny circumferential pericardial effusion. 7. Compared to the report of 01/21/2024 the following changes have occurred: Left ventricular ejection fraction has improved, left ventricular end-diastolic volume and heart rate have decreased. The estimated right ventricular systolic pressure is lower. Even though the mitral regurgitation still calculates as severe on today's examination, it seems less prominent today when compared to on prior studies. Side by side comparison of images performed. Procedure Note Prudencio Velazquez M.D., Ph.D. - 07/03/2024 For the complete report, see the Order-Level Documents. Hemodynamics Heart Rate: 60 BPM Blood Pressure: 100 / 60 mmHg ECG: Sinus rhythm with ectopics Final Impressions 1. Severely enlarged left ventricular chamber size, severe generalizedhypokinesis, calculated 3-D volumetric ejection fraction 29% in thesetting of severe mitral regurgitation. 2. Left ventricular cardiac index 2.53 l/min/m2. 3. Severely elevated left ventricular filling pressure in the setting ofsevere mitral regurgitation. 4. Moderate-severely enlarged right ventricular chamber size,moderate-severely reduced systolic function, estimated right ventricularsystolic pressure 29 mmHg (right atrial pressure of 5 mmHg). 5. Severe mitral valve regurgitation (Eccentric mitral regurgitation,functional. Diminutive posterior leaflet and leaflet tenting. Flowreversals pulmonary vein.), ERO (PISA) 0.41 cm2 (which likelyunderestimates the severity of mitral regurgitation in the setting of [place] regurgitant jet.), regurgitant volume (PISA) 70 ml. 6. Tiny circumferential pericardial effusion. 7. Compared to the report of 01/21/2024 the following changes haveoccurred: Left ventricular ejection fraction has improved, leftventricular end-diastolic volume and heart rate have decreased. Theestimated right ventricular systolic pressure is lower. Even though themitral regurgitation still calculates as severe on today's examination, itseems less prominent today when compared to on prior studies. Side byside comparison of images performed. Findings Echocardiogram performed per left ventricular function protocol. Last fullechocardiogram performed 01/21/2024. LEFT VENTRICLE:Severely enlarged left ventricular chamber size. Abnormalleft ventricular geometry with eccentric left ventricular hypertrophy.Left ventricular mass index by 2D 147 g/m2. Calculated 2-D linear leftventricular ejection fraction 29%. Calculated 2-D biplane volumetric leftventricular ejection fraction of 29%. Calculated 3-D volumetric leftventricular ejection fraction 29%. Left ventricular cardiac index 2.53l/min/m2. Left ventricular stroke volume index 44 ml/m2. Severegeneralized left ventricular hypokinesis. Severely elevated leftventricular filling pressure. RIGHT VENTRICLE:Moderate-severely enlarged right ventricular chamber size.Moderate-severely reduced right ventricular systolic function. Estimatedright ventricular systolic pressure 29 mmHg (right atrial pressure of 5mmHg). ATRIA:Severely enlarged left atrial size by visual estimate. Mildlyenlarged right atrial size by visual estimate. CARDIAC VALVES:Morphologically normal aortic valve. Trivial aortic valveregurgitation. Normal mitral valve leaflet thickness. Mitral annulusdilatation. Severe mitral valve regurgitation. Mitral regurgitation ERO(PISA) 0.41 cm2. Mitral regurgitant volume (PISA) 70 ml. Normal tricuspidvalve. Mild tricuspid valve regurgitation. OTHER ECHO FINDINGS:Enlarged inferior vena cava size with normalinspiratory collapse (>50%). No intracardiac mass or thrombus, but theleft atrial appendage cannot be visualized adequately with transthoracicecho to exclude thrombus in this location. Tiny circumferentialpericardial effusion. For the complete report, see the Order-Level Documents. us Ana Paula Arzola M.D. CV ECHO PROCEDURES Final R esult * ICD SINGLE CHAMBER INTERROGATION WITH PROGRAMMING (06/19/2024 8:52 AM PACKING ROOM INSPECTOR) Only the most recent of2 resultswithin the time period is included. Date Time Interrogation Session [id number] [facility] Implantable Pulse Generator Lead Software Developer [employer] [facility] Implantable Pulse Generator Type Defibrillator [facility] Implantable Pulse Generator Model Acticor 7 VR-T DX [facility] Implantable Pulse Generator Serial Number [id number] [facility] Implantable Pulse Generator Implant Date [id number] [facility] Battery Voltage 3.090 [facility] Battery Status JAIME [facility] Kevin Statistic RV Percent Paced 0.00 [facility] Atrial Tachy Statistic AT/AF Zamora Percent 0.00 [facility] Lead Channel Sensing Intrinsic Amplitude 14.900 [facility] Lead Channel Setting Sensing Sensitivity 1.00 [facility] Lead Channel Sensing Intrinsic Amplitude 24.200 [facility] Lead Channel Setting Sensing Sensitivity 0.80 [facility] Lead Channel Impedance Value 618 [facility] Lead Channel Pacing Threshold Amplitude 0.400 [facility] Lead Channel Pacing Threshold Pulse Width 0.4 [facility] Lead Channel Setting Pacing Amplitude 3.500 [facility] Lead Channel Setting Pacing Pulse Width 0.4 [facility] Kevin Setting Mode (NBG Code) VDI [facility] Kevin Setting Lower Rate Limit 40 [facility] Therapy Statistic Recent Shocks Delivered 0 [facility] Therapy Statistic Recent ATP Delivered 0 [facility] Murj Shock Measured Impedance 57 [facility] Zone Setting Type Category VT [facility] Murj Rate 1 182 [facility] Zone Setting Status Monitor [facility] Murj Zone ID 7 [facility] Zone Setting Type Category VT [facility] Murj Rate 1 188 [facility] Murj Therapies 2 x Burst, 40J, 40J, 40J x 6 [facility] Zone Setting Status On [facility] Murj Zone ID 8 [facility] Zone Setting Type Category VF [facility] Murj Rate 1 231 [facility] Murj Therapies Burst, 40J, 40J, 40J x 6 [facility] Zone Setting Status On [facility] Murj Zone ID 9 [facility] Implantable Lead Lead Software Developer Other [facility] Implantable Lead Model [id number] [facility] Implantable Lead Location Right Ventricle [facility] Implantable Lead Connection Status Connected [facility] Implantable Lead Serial Number [id number] [facility] Implantable Lead Special Function Lead length: 65.00 cm [facility] Anatomical Region Laterality Modality Other, Other 06/28/2024 6:00 PM PACKING ROOM INSPECTOR Impressions 06/28/2024 6:00 PM PACKING ROOM INSPECTOR Encounter Impression: Title: Normal In-Office: No Events Day 1 post-implant check in CV exam. * Normal Device Function * Alerts or events: None * Battery: JAIME, 100% * Sensing, impedance and thresholds reviewed and tested * Presenting Rhythm: A sensed V sensed @ 78 bpm * Underlying Rhythm: Sinus rhythm @ 78 bpm * Heart Rate Histograms reviewed * Pacing and Detection Parameters were evaluated *Mepilex dressing was covering incision and WNL. I removed the Pocket Press during today's check. Plan: This patient underwent device interrogation. I agree that the device interrogation was medically indicated to provide appropriate care and continue routine device interrogations as indicated. Encounter Summary: This report includes 1 transmission that was received on 2024-06-19. Battery, lead impedance, sensing amplitude and pacing threshold data was reviewed. Narrative Procedure Note Claudia Saldivar M.D. - 06/30/2024 IMPRESSION: Encounter Impression: Title: Normal In-Office: No Events Day 1 post-implant check in CV exam. * Normal Device Function * Alerts or events: None * Battery: JAIME, 100% * Sensing, impedance and thresholds reviewed and tested * Presenting Rhythm: A sensed V sensed @ 78 bpm * Underlying Rhythm: Sinus rhythm @ 78 bpm * Heart Rate Histograms reviewed * Pacing and Detection Parameters were evaluated *Mepilex dressing was covering incision and WNL. I removed the PocketPress during today's check. Plan: This patient underwent device interrogation. I agree that the deviceinterrogation was medically indicated to provide appropriate care andcontinue routine device interrogations as indicated. Encounter Summary: This report includes 1 transmission that was receivedon 2024-06-19. Battery, lead impedance, sensing amplitude and pacingthreshold data was reviewed. us Crispin Gonzalez CV IMPLANTABLE CARDIAC DEVICE Final Result * DX Chest AP or PA and Lateral 2 Views (06/18/2024 2:54 PM PACKING ROOM INSPECTOR) Anatomical Region Laterality Modality Chest, Thoracic RST LOS, Tho racic ARZ LOS, Thoracic FLA LOS N/A Digital Radiography Impressions 06/18/2024 4:00 PM PACKING ROOM INSPECTOR Single chamber ICD.No focal consolidation, large pleural effusion, or discernible pneumothorax. Narrative 06/18/2024 4:00 PM PACKING ROOM INSPECTOR EXAM: DX CHEST AP OR PA AND LATERAL 2 VIEWS Procedure Note Jorge Obrien D.O. - 06/18/2024 EXAM: DX CHEST AP OR PA AND LATERAL 2 VIEWS IMPRESSION: Single chamber ICD.No focal consolidation, large pleural effusion, ordiscernible pneumothorax. us Brenda Verdin APRN, C.N.P., M.S.N. IMG DIAGNOSTI C IMAGING PROCEDURES Final Result * ECG 12 Lead (06/18/2024 1:13 PM PACKING ROOM INSPECTOR) Only the most recent of2 resultswithin the time period is included. Ventricular Rate ECG/Min 56 BPM MUSE NC Interval 130 ms MUSE QRSD Interval 108 ms MUSE QT Interval 418 ms MUSE QTC Interval 403 ms MUSE P Dolores 47 degrees MUSE R Dolores 83 degrees MUSE T Wave Dolores 172 degrees MUSE 06/18/2024 1:13 PM PACKING ROOM INSPECTOR 06/18/2024 1:27 PM PACKING ROOM INSPECTOR Impressions MUSE - 06/18/2024 1:27 PM PACKING ROOM INSPECTOR Sinus bradycardia Moderate voltage criteria for LVH, may be normal variant Nonspecific ST and T wave abnormality Prominent u-wave When compared with ECG of 08-Jun-2024 09:39, No significant change was found Reviewed by DAYNA López Narrative Procedure Note Dereck Correa M.D., Ph.D. - 06/18/2024 IMPRESSION: Sinus bradycardia Moderate voltage criteria for LVH, may be normal variant Nonspecific ST and T wave abnormality Prominent u-wave When compared with ECG of 08-Jun-2024 09:39, No significant change was found Reviewed by DAYNA López us Brenda Verdin APRN, C.N.P., M.S.N. ECG ORDERABLE S Final Result MUSE NA * ICD IMPLANT - SINGLE CHAMBER (06/18/2024 12:41 PM PACKING ROOM INSPECTOR) Anatomical Region Laterality Modality X-Ray Angiograph y 06/18/2024 10:3 4 AM PACKING ROOM INSPECTOR Narrative 06/19/2024 4:27 PM PACKING ROOM INSPECTOR For the complete report, see the Order-Level Documents. PROCEDURE TYPES 1. ICD IMPLANT - SINGLE CHAMBER PRE-PROCEDURE DIAGNOSIS 1. Cardiomyopathy Dilated (HCC) 2. Cardiomyopathy (HCC) HRS NOTE PROCEDURE PERFORMED AND DESCRIPTION Informed consent was obtained. Patient was brought to the device suite in the fasting state. A procedural pause was performed and team briefing was done. Conscious sedation was administered. IV antibiotics were given prior to skin incision. Intravenous contrast and fluoroscopic guidance were used to define the axillary and subclavian veins. Lidocaine was used for local anesthesia and a 3 cm incision was made. Electrocautery was used to dissect through the planes and to establish hemostasis. Given his thin body habitus, we created a submuscular pocket with meticulous dissection and hemostasis. Extrathoracic subclavian vein access was obtained using a micropuncture needle and modified Seldinger technique over the first rib. The wire was followed down to the IVC. A 9 Polish introducer sheath was placed into the vein. Using straight and curved soft stylettes, the ventricular ICD lead was passed across the tricuspid annulus and advanced into the right ventricular outflow tract, retracted and then approximated to the apical interventricular septum. After confirming excellent current of injury, the fixation screw was extended and adequate pacing and sensing parameters were confirmed in both unipolar and bipolar configuration (see device report). With maximum output pacing, there was no extracardiac stimulation. The suture sleeve was positioned at the site of entry into the muscle layer, and the lead was secured to the prepectoral fascia by securing the suture sleeve to the lead and lead to the underlying muscle (3 total). The lead was connected to the appropriate ports on the generator (checking pacing and also serial numbers) and secured by tightening the header set screw. The pocket was copiously irrigated using normal saline solution. The device was tacked down to the pectoral muscle with an Ethibond suture and placed into the pocket. The wound margins approximated well. The deep fascial layer was closed using 2 layers of 2-0 Vicryl sutures. The skin was closed using running subcuticular continuous 4-0 Stratafix and a Mepilex dressing. A pressure dressing was applied for security but excellent hemostasis was achieved at the conclusion of the case. Final fluoroscopic positioning was obtained. Surgical counts were satisfactory. COMPLICATIONS None acute. Post-procedure plan: 1) Transfer to recovery. 2) Pain control as needed. 3) Avoid heparin for 48 hours. 4) ECG chest x-ray, and device interrogation post-procedure. NPO after midnight until complete. 5) Follow-up in device clinic in 3 months. RADIATION DOSE DATA Procedure cumulative skin dose (mGy): 8.54 Procedure cumulative dose area product (Gy-cm2): 0.99 Fluoro Time (Min): 5.18 For the complete report, see the Order-Level Documents. Procedure Note Anna Nunn M.B.BIvanS. - 06/19/2024 For the complete report, see the Order-Level Documents. PROCEDURE TYPES 1. ICD IMPLANT - SINGLE CHAMBER PRE-PROCEDURE DIAGNOSIS 1. Cardiomyopathy Dilated (HCC) 2. Cardiomyopathy (HCC) HRS NOTE PROCEDURE PERFORMED AND DESCRIPTION Informed consent was obtained. Patientwas brought to the device suite in the fasting state. A procedural pausewas performed and team briefing was done. Conscious sedation wasadministered. IV antibiotics were given prior to skin incision. Intravenous contrast andfluoroscopic guidance were used to define the axillary and subclavianveins. Lidocaine was used for local anesthesia and a 3 cm incision wasmade. Electrocautery was used to dissect through the planes and toestablish hemostasis. Given his thin body habitus, we created asubmuscular pocket with meticulous dissection and hemostasis.Extrathoracic subclavian vein access was obtained using a micropunctureneedle and modified Seldinger technique over the first rib. The wire wasfollowed down to the IVC. A 9 Polish introducer sheath was placed into the vein. Using straight andcurved soft stylettes, the ventricular ICD lead was passed across thetricuspid annulus and advanced into the right ventricular outflow tract,retracted and then approximated to the apical interventricular septum.After confirming excellent current of injury, the fixation screw wasextended and adequate pacing and sensing parameters were confirmed in bothunipolar and bipolar configuration (see device report). With maximumoutput pacing, there was no extracardiac stimulation. The suture sleevewas positioned at the site of entry into the muscle layer, and the leadwas secured to the prepectoral fascia by securing the suture sleeve to thelead and lead to the underlying muscle (3 total). The lead was connected to the appropriate ports on the generator (checkingpacing and also serial numbers) and secured by tightening the header setscrew. The pocket was copiously irrigated using normal saline solution.The device was tacked down to the pectoral muscle with an Ethibond sutureand placed into the pocket. The wound margins approximated well. The deepfascial layer was closed using 2 layers of 2-0 Vicryl sutures. The skinwas closed using running subcuticular continuous 4-0 Stratafix and aMepilex dressing. A pressure dressing was applied for security but excellent hemostasis wasachieved at the conclusion of the case. Final fluoroscopic positioning was obtained. Surgical counts weresatisfactory. COMPLICATIONS None acute. Post-procedure plan: 1) Transfer to recovery. 2) Pain control as needed. 3) Avoid heparin for 48 hours. 4) ECG chest x-ray, and device interrogation post-procedure. NPO aftermidnight until complete. 5) Follow-up in device clinic in 3 months. RADIATION DOSE DATA Procedure cumulative skin dose (mGy): 8.54 Procedure cumulative dose area product (Gy-cm2): 0.99 Fluoro Time (Min): 5.18 For the complete report, see the Order-Level Documents. Crispin Gonzalez CV ELECTROPHYSIOLOGY P ROCS Final Result * NC ARTL CATH/CNULA MONITOR PERC, LDA ANE ARTERIAL LINE INSERTION (06/18/2024 10:08 AM PACKING ROOM INSPECTOR) Narrative Darling Ahn APRN, CRNA, DNAP - 06/18/2024 10:08 AM PACKING ROOM INSPECTOR Darling Ahn APRN, CRNA DNACarlos 06/18/2024 12:28 PM Invasive Catheter Date/Time: 06/18/2024 10:08 AM Performed by: Darling Ahn APRN, CRNA DNACarlos Authorized by: Darling Ahn APRN, CRNA DNACarlos Location: OR PROCEDURE DETAILS: Line type: arterial Laterality: right Location: radial Location details: new site Age group: adult Catheter diameter: 20 Ga Technique: palpation Monitored: yes Number of attempts: 3 UNIVERSAL PROTOCOL All relevant documentation and testing were reviewed and available. All required blood products, implants, devices and or special equipment were made available as applicable. Pre-procedure verification was conducted and the correct site was marked if required. A fire risk and smoke assessment were done as applicable. The procedural time-out to verify correct patient, correct side/site, and procedure was conducted prior to performing the procedure and confirmed in a procedural pause. PRE-PROCEDURE DETAILS: Appropriate hand hygiene, gown, cap, mask, protective eyewear, sterile gloves, skin preparation, sterile drape, and strict aseptic technique were utilized as applicable for the procedure.: yes Skin preparation: chlorhexidine SEDATION / ANESTHESIA Anesthesia method: local infiltration Local infiltrate type: lidocaine POST-PROCEDURE DETAILS: Procedure completed successfully: yes Line secured: secured with sutureless device Chlorhexidine disc around insertion site and under catheter with slight turn: yes Notable Events - arterial: none Darling L [place] TICKER INSTALLER, SIDING APPLICATOR, DNAP PROCEDURE/LATOYA R SURGICAL ORDERABLES Final Result * (ABNORMAL) CBC without Differential (06/08/2024 8:52 AM PACKING ROOM INSPECTOR) Hemoglobin 15.2 13.2 - 16.6 g/dL 06/08/2024 10:11 AM PACKING ROOM INSPECTOR DTL Hematocrit 46.2 38.3 - 48.6 % 06/08/2024 10:11 AM PACKING ROOM INSPECTOR DTL Erythrocytes 5.22 4.35 - 5.65 x10(12)/L 06/08/2024 10:11 AM PACKING ROOM INSPECTOR DTL MCV 88.5 78.2 - 97.9 fL 06/08/2024 10:11 AM PACKING ROOM INSPECTOR DTL RBC Distrib Width 12.5 11.8 - 14.5 % 06/08/2024 10:11 AM PACKING ROOM INSPECTOR DTL Platelet Count 319(H) 135 - 317 x10(9)/L 06/08/2024 10:11 AM PACKING ROOM INSPECTOR DTL Leukocytes 5.3 3.4 - 9.6 x10(9)/L 06/08/2024 10:11 AM PACKING ROOM INSPECTOR DTL Blood (Blood, Venous) 06/08/2024 8:52 AM PACKING ROOM INSPECTOR 06/08/2024 9:04 AM PACKING ROOM INSPECTOR Crispin Gonzalez LAB BLOOD ADD-ON Final Result [facility] [address] [place] [address], [facility] DTL [facility] [address] [place] [address] * Basic Metabolic Panel (06/08/2024 8:52 AM PACKING ROOM INSPECTOR) Potassium, S 4.1 3.6 - 5.2 mmol/L 06/08/2024 9:54 AM PACKING ROOM INSPECTOR DTL Sodium, S 139 135 - 145 mmol/L 06/08/2024 9:54 AM PACKING ROOM INSPECTOR DTL Chloride, S 101 98 - 107 mmol/L 06/08/2024 9:54 AM PACKING ROOM INSPECTOR DTL Bicarbonate, S 27 22 - 29 mmol/L 06/08/2024 9:54 AM PACKING ROOM INSPECTOR DTL Anion Gap 11 7 - 15 06/08/2024 9:54 AM PACKING ROOM INSPECTOR DTL BUN (Blood Urea Nitrogen), S 21 8 - 24 mg/dL 06/08/2024 9:54 AM PACKING ROOM INSPECTOR DTL Creatinine 1.16 0.74 - 1.35 mg/dL 06/08/2024 9:54 AM PACKING ROOM INSPECTOR DTL Estimated GFR (eGFR) >90 >=60 mL/min/BSA 06/08/2024 9:54 AM PACKING ROOM INSPECTOR DTL Comment: Estimated GFR calculated using the 2020 CKD_EPI creatinine equation. Calcium, Total, S 10.0 8.6 - 10.0 mg/dL 06/08/2024 9:54 AM PACKING ROOM INSPECTOR DTL Glucose, S 96 70 - 140 mg/dL 06/08/2024 9:54 AM PACKING ROOM INSPECTOR DTL Blood (Blood, Venous) 06/08/2024 8:52 AM PACKING ROOM INSPECTOR 06/08/2024 9:25 AM PACKING ROOM INSPECTOR Crispin Gonzalez LAB BLOOD ADD-ON Final Result Performing Organization Address City/[facility]/ZIP Co de Phone Number [facility] [address] [facility] [address] [place] [address] * BUN (Blood Urea Nitrogen) (04/22/2024 8:05 AM CDT) BUN (Blood Urea Nitrogen), S 18 8 - 24 mg/dL 04/22/2024 9:11 AM CDT DTL Blood (Blood, Venous) 04/22/2024 8:05 AM CDT 04/22/2024 8:48 AM CDT us Kaitlynn Jiménez M.D. LAB BLOOD ADD-ON Final Result Performing Organization Address City/[facility]/ZIP Co de Phone Number [facility] [address] [place] [address], [facility] DTL [facility] [address] [place] [address] * Sodium (04/22/2024 8:05 AM CDT) Sodium, S 141 135 - 145 mmol/L 04/22/2024 9:11 AM CDT DTL Blood (Blood, Venous) 04/22/2024 8:05 AM CDT 04/22/2024 8:48 AM CDT us Kaitlynn Jiménez M.D. LAB BLOOD ADD-ON Final Result Performing Organization Address City/[facility]/ZIP Co de Phone Number [facility] [address] [place] [address], [facility] [address] [place] [address] * Potassium (04/22/2024 8:05 AM CDT) Potassium, S 4.1 3.6 - 5.2 mmol/L 04/22/2024 9:11 AM CDT DTL Blood (Blood, Venous) 04/22/2024 8:05 AM CDT 04/22/2024 8:48 AM CDT us Kaitlynn Jiménez M.D. LAB BLOOD ADD-ON Final Result Performing Organization Address City/[facility] Co de Phone Number [facility] [address] [place] [address], [facility] [address] [place] [address] * Creatinine with Estimated GFR (04/22/2024 8:05 AM CDT) Creatinine 1.24 0.74 - 1.35 mg/dL 04/22/2024 9:11 AM CDT DTL Estimated GFR (eGFR) 85 >=60 mL/min/BSA 04/22/2024 9:11 AM CDT DTL Comment: Estimated GFR calculated using the 2020 CKD_EPI creatinine equation. Blood (Blood, Venous) 04/22/2024 8:05 AM CDT 04/22/2024 8:48 AM CDT us Kaitlynn Jiménez M.D. LAB BLOOD ADD-ON Final Result [facility] [address] [place] [address], [place] DTL [facility] [address] [place] [address] * HIV-1/-2 Ag and Ab Screen, Plasma (01/21/2024 8:53 AM CDT) [facility] HIV-1/-2 Ag and Ab Screen, P Negative Negative 01/21/2024 1:52 PM CDT [facility] Comment: Negative result does not rule out HIV infection. If exposure to HIV infection occurred <14 days ago, contact the laboratory to request addition of HIV-1/HIV-2 RNA detection, Plasma ([id number]). Blood (Blood, Venous) 01/21/2024 8:53 AM CDT 01/21/2024 12:37 PM CDT Dora Richmond M.D. LAB MICROBIOLOGY - BLOOD O RDERABLES Final Result Performing Organization Address City/[facility] Co de Phone Number [facility] [address] [place] [address] [facility] [address] [place] [address] from Last 3 Months or Most Recently Relevant to Health Maintenance Insurance [facility] Advance Directives For more information, please contact: [phone] * Full Code (Latest Code Status on File) Date Activated Date Inactivated Comments 06/18/2024 1:01 PM 06/18/2024 6:36 PM Question Answer Comments Full Code: Not Discussed Due to: Patient not available * Full Code Date Activated Date Inactivated Comments 01/20/2024 5:33 PM 01/26/2024 1:46 PM Question Answer Comments Full Code: Discussed Care Teams Us Marketing Director Relationship Specialty Start Date End Date Subha Benito M.D., M.S. [address] [place] [address] PCP - General Family Medicine 03
--- OUTSIDE RECORDS SUMMARY | 2024-07-17 19:27 | XMS_ITS | Clinical Summary ---
Author Organization [facility] Address [address] [place] [address] Care Team Providers Care Otolaryngologist Name Role Phone Subha Benito M.D., M.S. Primary Care Provide r Source Comments Patient records contain information from all sites at [facility]. For routine questions regarding patient records, call [phone] during business hours, M-F 8:00 AM - 5:00 PM Central Time. Record requests for emergency care only can be directed to [phone] at any time.[facility] Allergies No known active allergies Medications empagliflozin [...] daily. 180 tablet 3 07/06/2024 4:35 PM LIQUID LOADER 06/25/20 24 025 Active metoprolol succinate (Toprol XL) 100 mg 24 hr tablet Take 1 tablet (100 mg total) by mouth daily. Do not crush or chew. 30 tablet 1 07/06/2024 4:35 PM LIQUID LOADER 07/06/20 24 025 Active torsemide (Demadex) 20 [...] tablet. 45 tablet 2 06/19/2024 1:03 PM LIQUID LOADER 06/08/20 24 024 Discontinued(Re order) oxyCODONE (Roxicodone) 5 mg immediate release tabletIndicati ons:Acute Pain Take 1 tablet (5 mg total) by mouth every 6 (six) hours as needed for pain for up to 3 days Indication: Acute Pain. 12 tablet 06/18/2024 4:53 PM LIQUID LOADER 06/18/20 24 024 metoprolol succinate (Toprol XL) [...] 01/30/2024 Fracture Patella Closed Initial 07/11/2016 12/06/2017 Encounters Date Type Department Care Team Description 07/10/2024 9:39 AM LIQUID LOADER - 07/10/2024 11:59 PM LIQUID LOADER Hospital Encounter Department of Cardiovascular Diseases in [place], [place] [address] [place] [phone] Dheeraj Sandoval M.D., M.P.H. Arrived Discharge Disposition: Home or Self Care 07/03/2024 7:33 AM LIQUID LOADER - 07/03/2024 11:59 PM LIQUID LOADER Hospital Encounter Department of Cardiovascular Diseases in [place], [place] [address] [place] [phone] Ana Paula Arzola M.D. Cardiomyopathy (HCC) Discharge Disposition: Home or Self Care 06/25/2024 1:00 PM LIQUID LOADER Office Visit Department of Family Medicine, [address] [phone] Subha Benito M.D., M.S. Chronic Systolic (Congestive) Heart Failure (HCC) (Primary Dx); Cardiomyopathy Dilated (HCC); Presence Of Automatic (Implantable) Cardiac Defibrillator With Synchronous Cardiac Pacemaker (ICD And AICD) 06/19/2024 7:58 AM LIQUID LOADER - 06/19/2024 11:59 PM LIQUID LOADER Hospital Encounter Department of Cardiovascular Diseases in [address] [phone] Crispin Arevalo, M.B.B.S. Cardiomyopathy Dilated (HCC); Cardiomyopathy (HCC) Discharge Disposition: Home or Self Care 06/19/2024 Clinical Communication Department of Cardiovascular Medicine in [address] [phone] Anna Nunn M.B.B.S. DEVICE REGISTRATION (ICD IMPLANT ///) 06/18/2024 9:58 AM LIQUID LOADER - 06/18/2024 12:32 PM LIQUID LOADER Surgery Division of Cardiovascular Diseases in [address] [phone] Anna Nunn M.B.B.S. ICD IMPLANT - SINGLE CHAMBER 06/18/2024 9:53 AM LIQUID LOADER Anesthesia Event Division of Cardiovascular Diseases in [place], [place] [address] [place] [phone] Darling Ahn APRN, BERNARDO, DNAP 06/18/2024 7:58 AM LIQUID LOADER - 06/18/2024 4:36 PM LIQUID LOADER Hospital Encounter Division of Cardiovascular Diseases in [place], [place] [address] [place] [phone] Anna Nunn M.B.B.S. Cardiomyopathy Dilated (HCC); Cardiomyopathy (HCC) Discharge Disposition: Home or Self Care 06/18/2024 Orders Only Department of Cardiovascular Medicine in [place], [place] [address] [place] [phone] Miguel Angel Ahmadi, RIvanN. Aftercare Cardiac Defibrillator (Primary Dx) 06/15/2024 Refill Department of Cardiovascular Medicine in [place], [place] [address] [place] [phone] Kaitlynn Jiménez M.D. Med Refill 06/08/2024 8:20 AM LIQUID LOADER - 06/08/2024 11:59 PM LIQUID LOADER Hospital Encounter Department of Laboratory Medicine and Pathology, [facility], in [place], [place] [address] [place] [phone] Kaitlynn Jiménez M.D. Cardiomyopathy (HCC); Cardiomyopathy Dilated (HCC) Discharge Disposition: Home or Self Care 05/29/2024 10:30 AM LIQUID LOADER Education Department of Cardiovascular Medicine in [place], [place] [address] [place] [phone] Crispin Arevalo M.B.B.SLeah Lopez M.S.N., R.N. Cardiomyopathy Dilated (HCC) (Primary Dx); Cardiomyopathy (HCC) 05/29/2024 9:00 AM LIQUID LOADER Comprehensive Visit Department of Cardiovascular Medicine in [place], [place] [address] [place] [phone] Crispin Arevalo M.B.B.SIvan Cardiomyopathy Dilated (HCC) (Primary Dx) 05/29/2024 Clinical Communication Department of Cardiovascular Medicine in [place], [place] [address] [place] [phone] Clinical ReviewerHany M.D. 05/28/2024 4:45 PM [facility] Clinical Communication Virtual Review in [place], [place] [address] [place] [phone] Pre-visit Intake 04/23/2024 Refill Department of Cardiovascular Medicine in [place], [place] [address] [place] [phone] Kaitlynn Jiménez M.D. Med Refill 04/22/2024 7:40 AM CDT - 04/22/2024 11:59 PM CDT Hospital Encounter Department of Laboratory Medicine and Pathology, [facility], in [place], [place] [address] [place] [phone] Kaitlynn Jiménez M.D. Cardiomyopathy Dilated (HCC) Discharge Disposition: Home or Self Care 04/22/2024 Refill Department of Cardiovascular Medicine in [place], [place] [address] [place] [phone] Kaitlynn Jiménez M.D. Med Refill from Last 3 Months Immunizations Name Administration Dates Next Due 9vHPV [...] months and older)(PF) 05/05/2021,11/29/2020(Deferred: Patient decision),03/31/2019,04/10/2017, 016 Family History Medical History Relation Name Comments Bicuspid aortic valve Father Rodrigo Completed Suicide Father Rodrigo Diabetes type II Mother Dunia Hypertension Mother Dunia currently recie ving treatment Relation Name Status Comments Father Rodrigo Mother Dunia Alive Sister 1 Alanis Alive Sister 2 Darling Alive Social History Tobacco Use Types Packs/Day Years Used Date Smoking Tobacco: Never Smokeless Tobacco: Former Chew Quit: 10/21/2023 Tobacco Cessation:Counseling Given: No Alcohol Use Standard Drinks/Week Comments Yes 2 (1 standard drink = 0.6 oz pur e alcohol) [facility] Utilities Answer Date Recorded In the past 12 months has [facility] [employer], oil, or water [place] threatened to shut off services in your [...] your living situation today? [facility] live 01/30/2024 Sex and Gender Information Value Date Recorded Sex Assigned at Male 01/30/2024 10:17 AM CDT Legal Sex Male 5:27 AM LIQUID LOADER Gender Identity Male 01/30/2024 10:17 AM CDT Sexual Orientation Straight 01/30/2024 10 :17 AM CDT Last Filed Vital Signs Vital Sign Reading Time Taken Comments Blood Pressure 108/65 06/25/2024 12:49 PM LIQUID LOADER Pulse 65 06/25/2024 12:49 PM LIQUID LOADER Temperature 36.5 C (97.7 F) 06/18/2024 8:19 AM LIQUID LOADER Respiratory Rate 21 01/26/2024 11:3 0 AM CDT Oxygen Saturation 97% 06/18/2024 3:54 PM LIQUID LOADER Inhaled Oxygen Concentration - - Weight 71.5 kg (157 lb 10.1 oz) 06/18/2024 8:19 AM LIQUID LOADER Height 173.2 cm (5' 8.19) 06/18/2024 8:19 AM CS T Body Mass Index 23.83 06/18/2024 8:19 AM LIQUID LOADER Plan of Treatment Upcoming Encounters Date Type Department Care Team (Late st Contact Info) Description 09/16/2024 10:00 AM CDT Appointment Department of Cardiovascular Diseases in [place], [place] [address] [place] [phone] Priyank Metzger M.D., Ph.D. [address] [place] [phone] Health Maintenance Due Date Last Done Comments Hearing Screening during Wel l Child Visit 2003 Hepatitis C Screening 2003 TB Screening during Well Chi ld Visit 2003 1 week Well Child Check-Up 2003 1 month Well Child Check-Up 2003 2 month Well Child Check-Up 2003 4 month Well Child Check-Up 2003 6 month Well Child Check-Up 2003 9 month Well Child Check-Up 03/26/2004 12 month Well Child Check-Up 06/25/2004 15 month Well Child Check-Up 09/23/2004 18 month Well Child Check-Up 12/24/2004 2 year Well Child Check-Up 06/25/2005 30 month Well Child Check-Up 12/24/2005 3 year Well Child Check-Up 06/25/2006 Well Child Check-Up Complete d in Past Year 06/25/2006 4 year Well Child Check-Up 06/25/2007 5 year Well Child Check-Up 06/25/2008 6 year Well Child Check-Up 06/25/2009 7 year Well Child Check-Up 06/25/2010 8 year Well Child Check-Up 06/25/2011 9 year Well Child Check-Up 06/25/2012 10 year Well Child Check-Up 06/25/2013 11 year Well Child Check-Up 06/25/2014 12 year Well Child Check-Up 06/25/2015 13 year Well Child Check-Up 06/25/2016 14 year Well Child Check-Up 06/25/2017 Vision Screening during Well Child Visit 2017 15 year Well Child Check-Up 06/25/2018 16 year Well Child Check-Up 06/25/2019 18 year Well Child Check-Up 06/25/2021 19 year Well Child Check-Up 06/25/2022 20 year Well Child Check-Up 06/25/2023 COVID-19 Vaccine (2023-08 5 season) 2024 10/03/2021, 11/10/2020, 10/20/2020 21 year Well Child Check-Up 06/25/2024 Well Child Check-Up (WCC) 06/25/2024 Depression Screening (Annual PHQ-2) 07/08/2024 DTaP,Tdap,and Td Vaccines (7 - Td or Tdap) 10/05/2025 10/06/2015, 07/20/2008, 07/20/2008, Additional history exists Hepatitis B Vaccines Completed 04/26/2004, 2003, 2003 IPV Vaccines Completed 07/20/2008, 04/08, 2003, Additional history exists Varicella Vaccines Completed 07/20/2008, 07/27/2004 HPV Vaccines Completed 04/09/2016, 11/06, 10/06/2015 15 year Well Child Check-Up Completed 11/29/2020 Meningococcal Vaccine Completed 03/01/2021, 016 HIV Screening Completed 01/21/2024 Influenza Vaccine Completed 06/25/2024, , 03/31/2019, Additional history exists Pneumococcal vaccine (0-49 years) Completed 06/25/2024, 11/30/2004, 04/26/2004, Additional history exists Medical Devices Implanted Type Area 3Rd Pressman Device Identifier Shelf Expiration Date Model / Serial / Lot Unknown [id number] Cardiac Lead Unknown [id number] / [id number] / Lead Icd Plx S Dx 65/15 - [id number] - [id number] Implanted:Qty : 1 on 06/18/2024 by Anna Nunn M.B.B.SIvan at [facility] Cardiac Lead Left: Heart BIOTRONIK 02/04/2026 [id number] / [id number] / Icd Acticor Vr Df 4 - [id number] - [id number] Implanted:Qty : 1 on 06/18/2024 by Anna Nunn M.B.B.S. at [facility] Implant Cardiac Defibrillator Left: Chest BIOTRONIK 01/04/2026 [id number] / [id number] / Procedures Procedure Name Priority Date/Time Associated Diagnosis Comments INTERFACED REMOTE DEVICE CHECK Routine 07/10/2024 9:39 AM LIQUID LOADER (TTE) 2D ECHO DOPPLER COLOR Routine 07/03/2024 8:15 AM LIQUID LOADER Cardiomyopathy (HCC) ICD SINGLE CHAMBER INTERROGATION WITH PROGRAMMING Routine 06/19/2024 8:52 AM LIQUID LOADER Cardiomyopathy Dilated (HCC) Cardiomyopathy (HCC) DX CHEST AP OR PA AND LATERAL 2 VIEWS RAD - Routine (most inpatients and all outpatients) 06/18/2024 2:54 PM LIQUID LOADER ECG Routine 06/18/2024 1:13 PM LIQUID LOADER ADULT OXYGEN THERAPY Routine 06/18/2024 1:01 PM LIQUID LOADER ADULT OXYGEN THERAPY Routine 06/18/2024 1:01 PM LIQUID LOADER HEART RHYTHM PROCEDURE Routine 06/18/2024 12:41 PM LIQUID LOADER Cardiomyopathy Dilated (HCC) Cardiomyopathy (HCC) LDA ANE ARTERIAL LINE INSERTION Routine 06/18/2024 10:08 AM LIQUID LOADER [place] ARTL CATH/CNULA MONITOR PERC Routine 06/18/2024 10:08 AM LIQUID LOADER CAR CARDIAC DEVICE INTERROGATION Routine 06/18/2024 9:04 AM LIQUID LOADER ECG Routine 06/08/2024 9:39 AM LIQUID LOADER Cardiomyopathy Dilated (HCC) Cardiomyopathy (HCC) BASIC METABOLIC PANEL, S/P Routine 06/08/2024 8:52 AM LIQUID LOADER Cardiomyopathy Dilated (HCC) Cardiomyopathy (HCC) CBC WITHOUT DIFFERENTIAL, B Routine 06/08/2024 8:52 AM LIQUID LOADER Cardiomyopathy Dilated (HCC) Cardiomyopathy (HCC) SODIUM, S/P [...] CAR CARDIAC DEVICE INTERROGATION (07/10/2024 9:39 AM LIQUID LOADER) Date Time Interrogation Session [id number] [facility] Type Interrogation Session Remote [facility] Implantable Pulse Generator 3Rd Pressman Biotronik [facility] Implantable Pulse Generator Type Defibrillator [facility] Implantable Pulse Generator Model Acticor 7 VR-T DX [facility] Implantable Pulse Generator Serial Number [id number] [facility] Implantable Pulse Generator Implant Date 20240618 [facility] Battery Remaining Percentage 100.00 % [facility] Battery Voltage 3.120 [facility] Battery PREP PERSON Trigger 2.850 [facility] Battery Status JAIME [facility] Kevin Statistic RV Percent Paced 0.00 [place] [facility] Atrial Tachy Statistic AT/AF [place] Percent 0.00 [facility] [facility] Lead Channel Sensing Intrinsic Amplitude 8.000 [facility] Lead Channel Setting Sensing Sensitivity 1.00 [facility] Lead Channel Measurements Date and Time 20240710 [facility] Lead Channel Sensing Intrinsic Amplitude 20.000 [facility] Lead Channel Setting Sensing Sensitivity 0.80 [facility] Lead Channel Impedance Value 579 [facility] Lead Channel Pacing Threshold Amplitude 0.900 [facility] Lead Channel Pacing Threshold Pulse Width 0.4 [facility] Lead Channel Measurements Date [...] SYSTEM Therapy Statistic Recent Shocks Aborted 0 [facility] Therapy Statistic Recent ATP Delivered 0 [facility] Murj Shock Measured Impedance 64 [facility] Lead Channel Setting Sensing Polarity Bipolar [facility] Lead Channel Setting Sensing Polarity Bipolar [facility] Lead Channel Setting Pacing Polarity Bipolar [facility] Lead Channel Pacing Threshold Polarity [...] LAB SYSTEM Zone Setting Status Monitor [facility] Murj Zone ID 9 [facility] Zone Setting Type Category [place] [facility] Murj Rate 1 188 [facility] Murj Therapies 2 x Burst,40.0J,40.0J ,40.0J x 6 [facility] Zone Setting Status On [facility] Murj Zone ID 10 [facility] Implantable Lead 3Rd Pressman Other [facility] Implantable Lead Model [id number] [facility] Implantable Lead Location Right Ventricle [facility] Implantable Lead Connection Status Connected [facility] Implantable Lead Serial Number [id number] [facility] Implantable Lead Polarity Type Unknown [facility] Implantable Lead Special Function Lead length: 65.00 cm [facility] Anatomical Region Laterality Modality Other 07/13/2024 9:54 AM LIQUID LOADER Impressions 07/13/2024 9:54 AM LIQUID LOADER Encounter Impression: Title: Unscheduled Remote * Reason: [...] 2D ECHO DOPPLER COLOR (07/03/2024 8:15 AM LIQUID LOADER) Ejection Fraction 29 MC CV EIMS LV [...] Region Laterality Modality Echocardiography 07/03/2024 7:35 AM LIQUID LOADER Impressions 07/03/2024 9:35 AM LIQUID LOADER Echocardiogram performed per left ventricular function protocol. [...] the Order-Level Documents. Narrative 07/03/2024 9:35 AM LIQUID LOADER For the complete report, see the Order-Level [...] CHAMBER INTERROGATION WITH PROGRAMMING (06/19/2024 8:52 AM LIQUID LOADER) Only the most recent of2 resultswithin the time period is included. Date Time Interrogation Session [id number] [facility] Implantable Pulse Generator 3Rd Pressman Biotronik [facility] Implantable Pulse Generator Type Defibrillator [facility] Implantable Pulse Generator Model Acticor 7 VR-T DX [facility] Implantable Pulse Generator Serial Number [id number] [facility] Implantable Pulse Generator Implant Date 20240618 [facility] Battery Voltage 3.090 [facility] Battery Status JAIME [facility] Kevin Statistic RV Percent Paced 0.00 [facility] Atrial Tachy Statistic AT/AF [place] Percent 0.00 [facility] Lead Channel Sensing Intrinsic Amplitude 14.900 [facility] Lead Channel Setting Sensing Sensitivity 1.00 [facility] Lead Channel Sensing Intrinsic Amplitude 24.200 [facility] Lead Channel Setting Sensing Sensitivity 0.80 [facility] Lead Channel Impedance Value 618 [facility] Lead Channel Pacing Threshold Amplitude 0.400 [facility] Lead Channel Pacing Threshold Pulse Width 0.4 [facility] Lead Channel Setting Pacing Amplitude 3.500 [facility] Lead Channel Setting Pacing Pulse Width 0.4 [facility] Kevin Setting Mode (NBG Code) VDI [facility] Kevin Setting Lower Rate Limit 40 [facility] Therapy Statistic Recent Shocks Delivered 0 [facility] Therapy Statistic Recent ATP Delivered 0 [facility] Murj Shock Measured Impedance 57 [facility] Zone Setting Type Category [place] [facility] Murj Rate 1 182 [facility] Zone Setting Status Monitor [facility] Murj Zone ID 7 [facility] [...] 9 [facility] Implantable Lead 3Rd Pressman Other [facility] Implantable Lead Model [id number] [facility] Implantable Lead Location Right Ventricle [facility] Implantable Lead Connection Status Connected [facility] Implantable Lead Serial Number [id number] [facility] Implantable Lead Special Function Lead length: 65.00 cm [facility] Anatomical Region Laterality Modality Other, Other 06/28/2024 6:00 PM LIQUID LOADER Impressions 06/28/2024 6:00 PM LIQUID LOADER Encounter Impression: Title: Normal In-Office: No Events [...] sensing amplitude and pacingthreshold data was reviewed. Crispin Gonzalez CV IMPLANTABLE CARDIAC DEVICE Final Result * DX Chest AP or PA and Lateral 2 Views (06/18/2024 2:54 PM LIQUID LOADER) Anatomical Region Laterality Modality Chest, Thoracic RST LOS, Tho racic ARZ LOS, Thoracic FLA LOS N/A Digital Radiography Impressions 06/18/2024 4:00 PM LIQUID LOADER Single chamber ICD.No focal consolidation, large pleural effusion, or discernible pneumothorax. Narrative 06/18/2024 4:00 PM LIQUID LOADER EXAM: DX CHEST AP OR PA AND LATERAL 2 VIEWS Procedure Note Jorge Obrien D.O. - 06/18/2024 EXAM: DX CHEST AP OR PA AND LATERAL 2 VIEWS IMPRESSION: Single chamber ICD.No focal consolidation, large pleural effusion, ordiscernible pneumothorax. us Brenda Verdin APRN, Earnestine.N.P., M.S.N. IMG DIAGNOSTI C IMAGING PROCEDURES Final Result * ECG 12 Lead (06/18/2024 1:13 PM LIQUID LOADER) Only the most recent of2 resultswithin the time period is included. Ventricular Rate ECG/Min 56 BPM MUSE [place] Interval 130 ms MUSE QRSD Interval 108 ms MUSE QT Interval 418 ms MUSE QTC Interval 403 ms MUSE P [place] 47 degrees MUSE R [place] 83 degrees MUSE T Wave [place] 172 degrees MUSE 06/18/2024 1:13 PM LIQUID LOADER 06/18/2024 1:27 PM LIQUID LOADER Impressions MUSE - 06/18/2024 1:27 PM LIQUID LOADER Sinus bradycardia Moderate voltage criteria for LVH, [...] C.N.P., M.S.N. ECG ORDERABLE S Final Result Performing Organization Address City/State/[facility] Co de Phone Number MUSE NA * ICD IMPLANT - SINGLE CHAMBER (06/18/2024 12:41 PM LIQUID LOADER) Anatomical Region Laterality Modality X-Ray Angiograph y 06/18/2024 10:3 4 AM LIQUID LOADER Narrative 06/19/2024 4:27 PM LIQUID LOADER For the complete report, see the Order-Level [...] followed down to the IVC. A 9 Peruvian introducer sheath was placed into the vein. [...] the Order-Level Documents. Procedure Note Anna Nunn M.B.B.S. - 06/19/2024 For the complete report, see [...] wasfollowed down to the IVC. A 9 Peruvian introducer sheath was placed into the vein. [...] CV ELECTROPHYSIOLOGY P ROCS Final Result * [place] ARTL CATH/CNULA MONITOR PERC, LDA ANE ARTERIAL LINE INSERTION (06/18/2024 10:08 AM LIQUID LOADER) Narrative Darling Ahn APRN, CRNA, DNAP - 06/18/2024 10:08 AM LIQUID LOADER Darling Ahn APRN, CRNA, DNAP 06/18/2024 12:28 PM Invasive Catheter Date/Time: 06/18/2024 10:08 AM Performed by: Darling Ahn APRN, CRNA, DNAP Authorized by: Darling Ahn APRN, CRNA, DNAP Location: [place] PROCEDURE DETAILS: Line type: arterial [...] yes Notable Events - arterial: none Darling Ahn APRN, CRNA, DNAP PROCEDURE/LATOYA R SURGICAL ORDERABLES Final Result * (ABNORMAL) CBC without Differential (06/08/2024 8:52 AM LIQUID LOADER) Hemoglobin 15.2 13.2 - 16.6 g/dL 06/08/2024 10:11 AM LIQUID LOADER DTL Hematocrit 46.2 38.3 - 48.6 % 06/08/2024 10:11 AM LIQUID LOADER DTL Erythrocytes 5.22 4.35 - 5.65 x10(12)/L 06/08/2024 10:11 AM LIQUID LOADER DTL MCV 88.5 78.2 - 97.9 fL 06/08/2024 10:11 AM LIQUID LOADER DTL RBC Distrib Width 12.5 11.8 - 14.5 % 06/08/2024 10:11 AM LIQUID LOADER DTL Platelet Count 319(H) 135 - 317 x10(9)/L 06/08/2024 10:11 AM LIQUID LOADER DTL Leukocytes 5.3 3.4 - 9.6 x10(9)/L 06/08/2024 10:11 AM LIQUID LOADER DTL Blood (Blood, Venous) 06/08/2024 8:52 AM LIQUID LOADER 06/08/2024 9:04 AM LIQUID LOADER Crispin De La GarzaB.S. LAB BLOOD ADD-ON Final Result [facility] [address] [place] [address], [facility] DTL [facility] [address] [place] [address] * Basic Metabolic Panel (06/08/2024 8:52 AM LIQUID LOADER) Pathologist [facility] Potassium, S 4.1 3.6 - 5.2 mmol/L 06/08/2024 9:54 AM LIQUID LOADER DTL Sodium, S 139 135 - 145 mmol/L 06/08/2024 9:54 AM LIQUID LOADER DTL Chloride, S 101 98 - 107 mmol/L 06/08/2024 9:54 AM LIQUID LOADER DTL Bicarbonate, S 27 22 - 29 mmol/L 06/08/2024 9:54 AM LIQUID LOADER DTL Anion Gap 11 7 - 15 06/08/2024 9:54 AM LIQUID LOADER DTL BUN (Blood Urea Nitrogen), S 21 8 - 24 mg/dL 06/08/2024 9:54 AM LIQUID LOADER DTL Creatinine 1.16 0.74 - 1.35 mg/dL 06/08/2024 9:54 AM LIQUID LOADER DTL Estimated GFR (eGFR) >90 >=60 mL/min/BSA 06/08/2024 9:54 AM LIQUID LOADER DTL Comment: Estimated GFR calculated using the 2020 CKD_EPI creatinine equation. Calcium, Total, S 10.0 8.6 - 10.0 mg/dL 06/08/2024 9:54 AM LIQUID LOADER DTL Glucose, S 96 70 - 140 mg/dL 06/08/2024 9:54 AM LIQUID LOADER DTL Blood (Blood, Venous) 06/08/2024 8:52 AM LIQUID LOADER 06/08/2024 9:25 AM LIQUID LOADER Crispin Rasheed.S. LAB BLOOD ADD-ON Final Result Performing Organization Address City/[facility]/ZIP Co de Phone Number [facility] [address] [place] [address] * BUN (Blood Urea Nitrogen) (04/22/2024 8:05 AM CDT) BUN (Blood Urea Nitrogen), S 18 8 - 24 mg/dL 04/22/2024 9:11 AM CDT DTL Blood (Blood, Venous) 04/22/2024 8:05 AM CDT 04/22/2024 8:48 AM CDT Kaitlynn Jiménez M.D. LAB BLOOD ADD-ON Final Result Performing Organization Address [facility] Co de Phone Number [facility] [address] 200 [place] [address] * Sodium (04/22/2024 8:05 AM CDT) Sodium, S 141 135 - 145 mmol/L 04/22/2024 9:11 AM CDT DT Blood (Blood, Venous) 04/22/2024 8:05 AM CDT 04/22/2024 8:48 AM CDT Kaitlynn Jiménez M.D. LAB BLOOD ADD-ON Final Result Performing Organization Address City/[facility]/ZIP Co de Phone Number [facility] [address] 200 [place] [address] * Potassium (04/22/2024 8:05 AM CDT) Potassium, S 4.1 3.6 - 5.2 mmol/L 04/22/2024 9:11 AM CDT DTL Blood (Blood, Venous) 04/22/2024 8:05 AM CDT 04/22/2024 8:48 AM CDT Result [facility] Kaitlynn Jiménez M.D. LAB BLOOD ADD-ON Final Result Performing Organization Address City/[facility] Co de Phone Number [facility] 200 [place] [address], [facility] 200 [place] [address] * Creatinine with Estimated GFR (04/22/2024 8:05 AM CDT) Pathologist [facility] Creatinine 1.24 0.74 - 1.35 mg/dL 04/22/2024 9:11 AM CDT [facility] Estimated GFR (eGFR) 85 >=60 mL/min/BSA 04/22/2024 9:11 AM CDT [facility] Comment: Estimated GFR calculated using the 2020 CKD_EPI creatinine equation. Blood (Blood, Venous) 04/22/2024 8:05 AM CDT 04/22/2024 8:48 AM CDT Result [facility] Kaitlynn Jiménez M.D. LAB BLOOD ADD-ON Final Result Performing Organization Address City/[facility] Co de Phone Number [facility] 200 [place] [address], [facility] 200 [place] [address] * HIV-1/-2 Ag and Ab Screen, Plasma (01/21/2024 8:53 AM CDT) Pathologist [facility] HIV-1/-2 Ag and Ab Screen, P Negative Negative 01/21/2024 1:52 PM CDT [facility] Comment: Negative result does not rule out HIV infection. If exposure to HIV infection occurred <14 days ago, contact the laboratory to request addition of HIV-1/HIV-2 RNA detection, Plasma (HIP12). Blood (Blood, Venous) 01/21/2024 8:53 AM CDT 01/21/2024 12:37 PM CDT Result [facility] Dora Richmond M.D. LAB MICROBIOLOGY - BLOOD O RDERABLES Final Result [facility] [address] [place] [address] [facility] [address] [place] [address] from Last 3 Months or Most Recently Relevant to Health Maintenance Insurance [facility] Advance Directives For more information, please contact: [phone] * Full Code (Latest Code Status on File) Date Activated Date Inactivated Comments 06/18/2024 1:01 PM 06/18/2024 6:36 PM Question Answer Comments Full Code: Not Discussed Due to: Patient not available * Full Code Date Activated Date Inactivated Comments 01/20/2024 5:33 PM 01/26/2024 1:46 PM Question Answer Comments Full Code: Discussed Care Teams Otolaryngologist Relationship Specialty Start Date End Date Subha Benito M.D., M.S. [address] [place] [phone] PCP - General Family Medicine 03
--- OUTSIDE RECORDS SUMMARY | 2024-07-17 19:28 | XMS_ITS | Encounter Summary ---
Author Organization [facility] Address [address] [place] [address] Care Team Providers Care Magazine Designer Name Role Phone Subha Benito M.D., M.S. Primary Care Provide r Encounter Details Date Type Department Care Team (Latest Contact Info) Description 05/29/2024 Clinical Communication Department of Cardiovascular Medicine in [place], [place] [address] [place] [address] Regional Hr ManagerHany M.D. Social History Tobacco Use Types Packs/Day Years Used Date Smoking Tobacco: Never Smokeless Tobacco: Former Chew Quit: 10/21/2023 Alcohol Use Standard Drinks/Week Comments Yes 2 (1 standard drink = 0.6 oz pur e alcohol) [facility] Utilities Answer Date Recorded In the past 12 months has [facility] [employer], gas, oil, or water [employer] threatened to shut off services in your [...] your living situation today? I have a [facility] place to live 01/30/2024 Sex and Gender Information Value Date Recorded Sex Assigned at Male 01/30/2024 10:17 AM CDT Legal Sex Male 5:27 AM MEAL TEMPERER Gender Identity Male 01/30/2024 10:17 AM CDT Sexual Orientation Straight 01/30/2024 10 :17 AM CDT documented as of this encounter Miscellaneous Notes * Telephone Encounter - Bryce Kapadia - 06/01/2024 3:38 PM CST Appointments and testing have been scheduled, mailed PAG and sent portal message TEMPERER documented in this encounter Plan of Treatment Upcoming Encounters Date Type Department Care Team (Late st Contact Info) Description 09/16/2024 10:00 AM CDT Appointment Department of Cardiovascular Diseases in [place], [place] [address] [place] [phone] Priyank Metzger M.D., Ph.D. [address] [place] [phone] documented as of this encounter Visit Diagnoses Not on filedocumented in this encounter Additional Health Concerns Assessment Noted Time PHQ-9 Depression Total Score: 4 11/30/19 21 1:39 PM CDT documented as of this encounter Care Teams Magazine Designer Relationship Specialty Start Date End Date Subha Benito M.D., M.S. [address] [place] [phone] PCP - General Family Medicine 03 documented as of this encounter
--- OUTSIDE RECORDS SUMMARY | 2024-07-17 19:28 | XMS_ITS | Encounter Summary ---
Author Organization [facility] Address [address] [place] [address] Care Team Providers Care Brick Offbearer Name Role Phone Subha Benito M.D., M.S. Primary Care Provide Reason for Referral * Cardiovascular-Diagnostic (Routine) - Closed Specialty Diagnoses / Procedures Referred By Johannac t Referred To Contact Diagnoses Cardiomyopathy (HCC) Procedures Echo Transthoracic (TTE) Ana Paula Arzola M.D. 200 [place] [address] Phone: tel: fax: [facility] Referral ID Status Reason Start Date Expiration Date Visits Re quested Visits Authorized [id number] Closed 06/05/2024 07/04/2024 1 1 BUSTER HELPER Reason for Visit * Cardiovascular-Diagnostic (Routine) - Closed Specialty Diagnoses / Procedures Referred By Henrry ludwig Referred To Contact Diagnoses Cardiomyopathy (HCC) Procedures Echo Transthoracic (TTE) Ana Paula Arzola M.D. [address] [place] [phone] Phone: tel: fax: [facility] Referral ID Status Reason Start Date Expiration Date Visits Re quested Visits Authorized [id number] Closed 06/05/2024 07/04/2024 1 1 Encounter Details Date Type Department Care Team (Latest Contact Info) Description 07/03/2024 7:33 AM ROD BUSTER HELPER - 07/03/2024 11:59 PM ROD BUSTER HELPER Hospital Encounter Department of Cardiovascular Diseases in [place], [place] [address] [place] [address] Ana Paula Arzola M.D. [address] [place] [address] Cardiomyopathy (HCC) Discharge Disposition: Home or Self Care Social History Tobacco Use Types Packs/Day Years Used Date Smoking Tobacco: Never Smokeless Tobacco: Former Chew Quit: 10/21/2023 Alcohol Use Standard Drinks/Week Comments Yes 2 (1 standard drink = 0.6 oz pur e alcohol) [facility] Utilities Answer Date Recorded In the past 12 months has e [employer], gas, oil, or water [employer] threatened to shut off services in your [...] money to buy more. Never true 01/30/20 24 Within the past 12 months, t he [...] your living situation today? I have a [facility] place to live 01/30/2024 Sex and Gender Information Value Date Recorded Sex Assigned at Male 01/30/2024 10:17 AM CDT Legal Sex Male 5:27 AM ROD BUSTER HELPER Gender Identity Male 01/30/2024 10:17 AM CDT [...] chew. 30 tablet 1 07/06/2024 4:35 PM ROD BUSTER HELPER 07/06/2024 09/04/2024 sacubitriL-valsar cespedes (Entresto) 49-51 mg [...] daily. 180 tablet 3 07/06/2024 4:35 PM ROD BUSTER HELPER 06/25/2024 06/25/2025 metoprolol succinate (Toprol XL) 50 mg 24 hr tablet Take 1.5 tablets (75 mg total) by mouth daily. Do not crush or chew tablet. 45 tablet 2 06/25/2024 07/06/2024 documented as of this encounter Plan of Treatment Upcoming Encounters Date Type Department Care Team (Late st Contact Info) Description 09/16/2024 10:00 AM CDT Appointment Department of Cardiovascular Diseases in [place], [place] [address] [place] [phone] Priyank Metzger M.D., Ph.D. [address] [place] [phone] documented as of this encounter Procedures Procedure Name Priority Date/Time Associated Diagnosis Comments (TTE) 2D ECHO DOPPLER COLOR Routine 07/03/2024 8:15 AM ROD BUSTER HELPER Cardiomyopathy (HCC) documented in this encounter Results * (TTE) 2D ECHO DOPPLER COLOR (07/03/2024 8:15 AM ROD BUSTER HELPER) Ejection Fraction 29 MC CV EIMS LV [...] Region Laterality Modality Echocardiography 07/03/2024 7:35 AM ROD BUSTER HELPER Impressions 07/03/2024 9:35 AM ROD BUSTER HELPER Echocardiogram performed per left ventricular function protocol. [...] the Order-Level Documents. Narrative 07/03/2024 9:35 AM ROD BUSTER HELPER For the complete report, see the Order-Level [...] M.D. CV ECHO PROCEDURES Final R esult documented in this encounter Visit Diagnoses Diagnosis Cardiomyopathy (HCC) documented in this encounter Additional Health Concerns Assessment Noted Time PHQ-9 Depression Total Score: 4 11/30/19 21 1:39 PM CDT documented as of this encounter Care Teams Brick Offbearer Relationship Specialty Start Date End Date Subha Benito M.D., M.S. [address] [place] [phone] PCP - General Family Medicine 03 documented as of this encounter
--- OUTSIDE RECORDS SUMMARY | 2024-07-17 19:28 | XMS_ITS | Encounter Summary ---
Author Organization [facility] Address [address] [place] [phone] Care Team Providers Care Geospatial Information Scientist Name Role Phone Subha Benito M.D., M.S. Primary Care Provide r Reason for Visit * Reason Onset Date Comments DEVICE REGISTRATION 06/19/2024 ICD IMPLANT Encounter Details Date Type Department Care Team (Latest Contact Info) Description 06/19/2024 Clinical Communication Department of Cardiovascular Medicine in [place], [place] [address] [place] [phone] Anna Nunn M.B.B.S. [address] [place] [phone] DEVICE REGISTRATION (ICD IMPLANT ///) Social History Tobacco Use Types Packs/Day Years Used Date Smoking Tobacco: Never Smokeless Tobacco: Former Chew Quit: 10/21/2023 Alcohol Use Standard Drinks/Week Comments Yes 2 (1 standard drink = 0.6 oz pur e alcohol) [facility] Utilities Answer Date Recorded In the past [...] your living situation today? I have a [facility] place to live 01/30/2024 Sex and Gender Information Value Date Recorded Sex Assigned at Male 01/30/2024 10:17 AM CDT Legal Sex Male 5:27 AM TABLE ATTENDANT Gender Identity Male 01/30/2024 10:17 AM CDT Sexual Orientation Straight 01/30/2024 10 :17 AM CDT documented as of this encounter Miscellaneous Notes * Telephone Encounter - Kristy Albert - 06/19/2024 8:32 AM CST Images from the original note were not included. ICD IMPLANT X Fontanelle Device & Leads X Extra copy for uLke Gonzalez X Create [place] Case X Place copies in communication message E ATTENDANT documented in this encounter Plan of Treatment Upcoming Encounters Date Type Department Care Team (Late st Contact Info) Description 09/16/2024 10:00 AM CDT Appointment Department of Cardiovascular Diseases in [place], [place] [address] [place] [phone] Priyank Metzger M.D., Ph.D. [address] [place] [phone] documented as of this encounter Visit Diagnoses Not on filedocumented in this encounter Additional Health Concerns Assessment Noted Time PHQ-9 Depression Total Score: 4 11/30/19 21 1:39 PM CDT documented as of this encounter Care Teams Geospatial Information Scientist Relationship Specialty Start Date End Date Subha Benito M.D., M.S. [address] [place] [phone] PCP - General Family Medicine 03 documented as of this encounter
--- OUTSIDE RECORDS SUMMARY | 2024-07-17 19:28 | XMS_ITS | Encounter Summary ---
Author Organization [facility] Address [address] [place] [id number] Care Team Providers Care Director Medical Surgical Name Role Phone Subha Benito M.D., M.S. Primary Care Provide r Reason for Visit * Auth/Cert (Routine) Specialty Diagnoses / Procedures Referred By Henrry ludwig Referred To Contact Diagnoses Cardiomyopathy Dilated (HCC) Cardiomyopathy (HCC) Cardiomyopathy Dilated (HCC) [I42.0] Cardiomyopathy (HCC) [I42.9] Procedures [place] INS/RPLC DFIB W TRANSVEN LEAD [place] AICD, OTHER THAN SING/DUAL ICD IMPLANT - SINGLE CHAMBER Crispin Arevalo M.B.B.S. [address] [place] [address] Phone: tel: fax: Referral ID Status Reason Start Date Expiration Date Visits Re quested Visits Authorized [id number] 1 1 Encounter Details Date Type Department Care Team (Late st Contact Info) Description 06/18/2024 9:58 AM TRAY FILLER - 06/18/2024 12:32 PM TRAY FILLER Surgery Division of Cardiovascular Diseases in [place], [place] [address] [place] [phone] Anna Nunn M.B.B.S. [address] [place] [phone] ICD IMPLANT - SINGLE CHAMBER Social History Tobacco Use Types Packs/Day Years Used Date Smoking Tobacco: Never Smokeless Tobacco: Former Chew Quit: 10/21/2023 Alcohol Use Standard Drinks/Week Comments Yes 2 (1 standard drink = 0.6 oz pur e alcohol) [facility] Utilities Answer Date Recorded In the past 12 months has e electric, gas, oil, or water [employer] threatened to shut off services in your [...] your living situation today? I have a [facility] place to live 01/30/2024 Sex and Gender Information Value Date Recorded Sex Assigned at Male 01/30/2024 10:17 AM CDT Legal Sex Male 5:27 AM TRAY FILLER Gender Identity Male 01/30/2024 10:17 AM CDT Sexual Orientation Straight 01/30/2024 10 :17 AM CDT documented as of this encounter Last Filed Vital Signs Vital Sign Reading Time Taken Comments Blood Pressure 108/57 06/18/2024 8:39 AM TRAY FILLER Pulse 56 06/18/2024 8:42 AM TRAY FILLER Temperature 36.5 C (97.7 F) 06/18/2024 8:19 AM TRAY FILLER Respiratory Rate - - Oxygen Saturation 99% 06/18/2024 8:42 AM TRAY FILLER Inhaled Oxygen Concentration - - Weight 71.5 kg (157 lb 10.1 oz) 06/18/2024 8:19 AM TRAY FILLER Height 173.2 cm (5' 8.19) 06/18/2024 8:19 AM CS T Body Mass Index 23.83 06/18/2024 8:19 AM TRAY FILLER documented in this encounter Discharge Summaries * Brenda Verdin APRN, C.N.P., M.S.N. - 06/18/2024 4:09 PM CST DISCHARGE SUMMARY BRIEF OVERVIEW Admission Date: 06/18/2024 Discharge Date: 06/18/24 Discharge Provider: Anna Nunn M.B.B.S. Discharge Provider Team: RST CVD Interventional/Heart Rhythm PRINCIPAL DIAGNOSIS Hospital Problems as of 06/18/2024 1. * (Principal) Presence Of Automatic (Implantable) Cardiac Defibrillator With Synchronous CardiacPacemaker (ICD And AICD) Status post single chamber ICD implant 06/18/2024 2. Chronic Systolic (Congestive) Heart Failure (HCC) 3. Cardiomyopathy Dilated (HCC) RECOMMENDATIONS FOR FOLLOW-UP APPOINTMENTS: - assess device site for healing - Patient to remove left chest Mepilex dressing on 06/25/2024 or sooner if integrity is not maintained. OUTPATIENT FOLLOW UP: Return for device interrogation on 06/19/2024 to [facility] 1E at 8:15 am. Patient instructed to be fasting after midnight for the interrogation. Patient was instructed to follow up with their local Primary Care Provider in 7- 10 days for a post hospitalization visit. An appointment has been scheduled on 06/25/24 at 12:40 PM with Derrick Tellez APRN, C.N.P. Routine device follow-up will occur every 3 months. The first appointment will be at the [facility]. The patient will be contacted by [facility] to set up this appointment. After this appointment, routine follow-up will continue with remote home monitoring. A remote home monitor has been given to the patient. They were instructed to verify communication between the monitor and the device and instructed to send a transmission within the first week after returning home. Then call the [facility] at ([phone]) during regular business hours (Saturday-Saturday, 8 a.m. - 4 p.m.) to verify the transmission was received. 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 He presented for planned single chamber ICD implant performed by Dr. Nunn on 06/18/24 for primary prevention. There were no known procedure complications. Device was placed in the left upper chest and site is covered with a Mepilex dressing to remain in place for 7 days if integrity is maintained. Post procedure ECG demonstrates sinus rhythm. Post procedure chest x-ray demonstrates device lead in expected location and no pneumothorax. Recommended Tylenol scheduled every 6 hours for pain control. I have also prescribed a small quantity of oxyCODONE to use every 6 hours as needed for breakthrough pain. Activity and driving restrictions were reviewed with the patient prior to discharge. Site care, activity and driving restrictions were reviewed prior to discharge. Prior to discharge he was able to ambulate, eat, drink, and void. OBJECTIVE PHYSICAL EXAMINATION General: appears to be in no acute distress. Neuro: Alert and oriented x 4, no focal deficits Heart: Regular rate and rhythm, no murmur Lungs: Clear to auscultation bilaterally, on room air, no cough Extremities: +2 left radial pulse. Wound: left pectoral incision was covered with a Mepilex dressing. No hematoma or bleeding. DISCHARGE DISPOSITION: Home. CONDITION AT DISCHARGE: Stable. Primary Care Provider Primary Care Provider Other Providers: Patient Care Team: Subha Benito M.D., M.S. as PCP - General (Family Medicine) Crispin Arevalo M.B.B.S. as Message Broker Developer Physician (Cardiovascular Diseases) FILLER documented in this encounter Discharge Instructions * Discharge Instructions* Miguel Angel Ahmadi R.N. - 06/18/2024 10:30 AM TRAY FILLER You were discharged from the [facility] CVD Interventional/Heart Rhythm Service. Please identify this service name if you call with questions after hospitalization. Implantable Cardioverter Defibrillator (ICD) Implant Instructions (Same day dismissal) Remember your arm restrictions No vigorous, upper body activity for 4 weeks. No raising of affected arm above shoulder level for 4 weeks. 5-pound weight limit with affected arm (this includes pushing, pulling, lifting) for 4 weeks. No driving for 10 days. Wear sling for 1 week, or as directed. Wound Care: Watch incision daily for signs and symptoms of infection and/or bleeding: Redness, swelling, drainage, oral temperature greater than 100.4??F. If any of these are present, please call us or your local doctor as soon as possible. Types of dressings over device incision: MEPILEX: Remove dressing in 1 week on 06/25/24. Check dressing daily for intact seal. If dressing is no longer intact, may need to remove sooner. Ok to shower day after implant with dressing on. Oncedressing is removed, leave incision open to air. DERMABOND SKIN GLUE: Covering dressing (if other than Mepilex) should be removed day after procedure. Dermabond skin glue will dissolve on its own, over the next 1-2 weeks. You may shower 24 hours after implant. Pat incision dry after showering. Do not apply any lotions or creams directly to incision. Do not submerge incision in water until completely healed (usually 3-4 weeks). Pain: You may use tpuv-uvv-kqchcef Extra Strength Tylenol (acetaminophen) 500 mg tablets, one to two tablets by mouth every six hours as needed for incisional discomfort. DO NOT EXCEED 4 grams of acetaminophen in any 24-hour period. Follow-Up: An in-clinic device interrogation is scheduled on 06/19/24, at 0830 AM. Please take the [facility] elevator to the 1st floor and check-in to [address] Exam Desk at the scheduled time.(Sign above entry door says Carolina Celaya). Remember to NOT eat or drink the same day of your appointment, starting at midnight. Routine remote transmitter follow-up dates will be scheduled every 3 months after this appointment,with one annual in clinic device check. If you plan to have your device followed locally, YOU are responsible for scheduling an appointment with a device specialist in 3 months. This appointment is very important as adjustments are madewhich will affect the device battery. If you wish to have your local clinic follow your transmittermonitoring as well, please contact us to request this transfer at or [phone]. Remote Transmitter: You will be provided with a remote home transmitter or cell phone ofe to assist you in ongoing follow up of your device. The transmitter or cell phone ofe will send information to your designated clinic on a quarterly basis, and in between those times, ONLY if the implanted device detects somethingit wants your clinic to be aware of. The transmitter or cell phone ofe is NOT a lifesaving device, n or will it contact anyone in an emergency. If you are experiencing any abnormal symptoms, please DONOT rely on this transmitter. Call your local physician, or if an emergency, report to the closest emergency room, or dial 911. It is recommended the transmitter remain plugged in at all times. The phone ofe should always remain open / running in the background with your phone's Bluetooth feature always on. When you arrive home, please set up your transmitter as instructed. You may verify this initial connection by calling the [facility] at or [phone] during clinic hours Saturday through Saturday, 8:00 AM - 4:30 PM TRAY FILLER. Please contact your device company with concerns or issues regarding your home transmitter. [employer] [phone] [employer] [phone] [employer] / [employer] [phone] [employer] [phone] ICD alert tones/vibration: Your ICD will beep or vibrate if your device detects something outside of its normal programmed parameters. Please contact the clinic following your device if you should notice this occurring. ICD shock: If you receive a shock, and are not experiencing any significant symptoms, please manually transmit, and call the clinic following your device to report the shock. If you receive a shock, and are continuing to experience symptoms, OR if you receive more than 1 shock in 24 hours, please seek medicalattention, or dial 911. [address] DO NOT drive yourself to the hospital. [facility] at or [phone] ALWAYS call 911 in the event of an emergency. FILLER FILLER documented in this encounter Medications at Time of Discharge empagliflozin (Jardiance) 10 mg tablet Take 1 tablet (10 mg total) by mouth daily before morning meal. 90 tablet 3 04/27/2024 04/27/2025 sacubitriL-valsar cespedes (Entresto) 49-51 mg per tablet Take 1 tablet by mouth 2 (two) times a day. 180 tablet 3 06/08/2024 06/03/2025 oxyCODONE (Roxicodone) 5 mg immediate release tabletIndications :Acute Pain Take 1 tablet (5 mg total) by mouth every 6 (six) hours as needed for pain for up to 3 days Indication: Acute Pain. 12 tablet 06/18/2024 4:53 PM TRAY FILLER 06/18/2024 06/21/2024 metoprolol succinate (Toprol XL) 50 mg 24 hr tablet Take 1.5 tablets (75 mg total) by mouth daily. Do not crush or chew tablet. 45 tablet 2 06/19/2024 1:03 PM TRAY FILLER 06/08/2024 06/25/2024 spironolactone (Aldactone) 25 mg tablet Take 0.5 tablets (12.5 mg total) by mouth daily. 45 tablet 1 03/24/2024 06/25/2024 torsemide (Demadex) 20 mg tabletIndications :Cardiomyopathy Dilated (HCC) Take 2 tablets (40 mg total) by mouth daily. 180 tablet 3 02/21/2024 06/25/2024 documented as of this encounter Procedure Notes * Anna Nunn M.B.B.S. - 06/18/2024 12:27 PM CST PROCEDURE(S) 1. Single-chamber, single coil, ICD implantation (VDD) PRE-PROCEDURE DIAGNOSES 1. Nonischemic cardiomyopathy PROCEDURE PERFORMED AND DESCRIPTION Informed consent was obtained. Patient was brought to the device suite in the fasting state. A procedural pause was performed and team briefing was done. Conscious sedation was administered. IV antibiotics were given prior to skin incision. Intravenous contrast and fluoroscopic guidance were used to define the axillary and subclavian veins. Lidocaine was used for local anesthesia and a 3cm incision was made. Electrocautery was used to dissect through the planes and to establish hemosta sis. Given his thin body habitus, we created a submuscular pocket with meticulous dissection and hemostasis. Extrathoracic subclavian vein access was obtained using a micropuncture needle and modified Seldinger technique over the first rib. The wire was followed down to the IVC. A 9 Indian introducer sheath was placed into the vein. [...] The suture sleeve was positioned at the siteof entry into the muscle layer, and the [...] Follow-up in device clinic in 3 months. FILLER documented in this encounter Miscellaneous Notes * Hospital Course - Brenda Veridn APRN, C.N.P., M.S.N. 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 He presented for planned single chamber ICD implant performed by Dr. Nunn on 06/18/24 for primary prevention. There were no known procedure complications. Device was placed in the left upper chest and site is covered with a Mepilex dressing to remain in place for 7 days if integrity is maintained. Post procedure ECG demonstrates sinus rhythm. Post procedure chest x-ray demonstrates device lead in expected location and no pneumothorax . Recommended Tylenol scheduled every 6 hours for pain control. Activity and driving restrictions were reviewed with the patient prior to discharge. FILLER FILLER documented in this encounter Plan of Treatment Upcoming Encounters Date Type Department Care Team (Late st Contact Info) Description 09/16/2024 10:00 AM CDT Appointment Department of Cardiovascular Diseases in [place], [place] [address] [place] [phone] Priyank Metzger M.D., Ph.D. [address] [place] [phone] documented as of this encounter Procedures Procedure Name Priority Date/Time Associated Diagnosis Comments DX CHEST AP OR PA AND LATERAL 2 VIEWS RAD - Routine (most inpatients and all outpatients) 06/18/2024 2:54 PM TRAY FILLER ECG Routine 06/18/2024 1:13 PM TRAY FILLER ADULT OXYGEN THERAPY Routine 06/18/2024 1:01 PM TRAY FILLER ADULT OXYGEN THERAPY Routine 06/18/2024 1:01 PM TRAY FILLER HEART RHYTHM PROCEDURE Routine 06/18/2024 12:41 PM TRAY FILLER Cardiomyopathy Dilated (HCC) Cardiomyopathy (HCC) CAR CARDIAC DEVICE INTERROGATION Routine 06/18/2024 9:04 AM TRAY FILLER documented in this encounter Results * DX Chest AP or PA and Lateral 2 Views (06/18/2024 2:54 PM TRAY FILLER) Anatomical Region Laterality Modality Chest, Thoracic RST LOS, Tho racic ARZ LOS, Thoracic FLA LOS N/A Digital Radiography Impressions 06/18/2024 4:00 PM TRAY FILLER Single chamber ICD.No focal consolidation, large pleural effusion, or discernible pneumothorax. Narrative 06/18/2024 4:00 PM TRAY FILLER EXAM: DX CHEST AP OR PA AND LATERAL 2 VIEWS Procedure Note Jorge Obrien D.O. - 06/18/2024 EXAM: DX CHEST AP OR PA AND LATERAL 2 VIEWS IMPRESSION: Single chamber ICD.No focal consolidation, large pleural effusion, ordiscernible pneumothorax. us Shahram Reynoso APRNNRamo., M.S.N. IMG DIAGNOSTI C IMAGING PROCEDURES Final Result * ECG 12 Lead (06/18/2024 1:13 PM TRAY FILLER) Ventricular Rate ECG/Min 56 BPM MUSE WA Interval 130 ms MUSE QRSD Interval 108 ms MUSE QT Interval 418 ms MUSE QTC Interval 403 ms MUSE P [place] 47 degrees MUSE R [place] 83 degrees MUSE T Wave [place] 172 degrees MUSE 06/18/2024 1:13 PM TRAY FILLER 06/18/2024 1:27 PM TRAY FILLER Impressions MUSE - 06/18/2024 1:27 PM TRAY FILLER Sinus bradycardia Moderate voltage criteria for LVH, [...] was found Reviewed by DAYNA López us Earnestine Reynoso APRN.N.P., M.S.N. ECG ORDERABLE S Final Result MUSE NA * ICD IMPLANT - SINGLE CHAMBER (06/18/2024 12:41 PM TRAY FILLER) Anatomical Region Laterality Modality X-Ray Angiograph y 06/18/2024 10:3 4 AM TRAY FILLER Narrative 06/19/2024 4:27 PM TRAY FILLER For the complete report, see the Order-Level [...] followed down to the IVC. A 9 Indian introducer sheath was placed into the vein. [...] wasfollowed down to the IVC. A 9 Indian introducer sheath was placed into the vein. [...] CV ELECTROPHYSIOLOGY P ROCS Final Result * CARDIOVASCULAR IMPLANTABLE ELECTRONIC DEVICE - NO CHARGE (06/18/2024 9:04 AM TRAY FILLER) Date Time Interrogation Session [facility] Implantable Pulse Generator Spiral Binder [employer] [facility] Implantable Pulse Generator Type Defibrillator [facility] Implantable Pulse Generator Model Acticor 7 VR-T DX [facility] Implantable Pulse Generator Serial Number [id number] [facility] Implantable Pulse Generator Implant Date 20240618 [facility] Battery Remaining Percentage 100.00 % [facility] Battery Voltage 3.090 [facility] [employer] [facility] Battery Status JAIME [facility] Lead Channel Sensing Intrinsic Amplitude 20.200 [facility] Lead Channel Setting Sensing Sensitivity 1.00 [facility] Lead Channel Sensing Intrinsic Amplitude 24.200 [facility] Lead Channel Setting Sensing Sensitivity 0.80 [facility] Lead Channel Impedance Value 599 [facility] Lead Channel Pacing Threshold Amplitude 0.300 [facility] Lead Channel Pacing Threshold Pulse Width 0.4 [facility] Lead Channel Setting Pacing Amplitude 1.300 [facility] Lead Channel Setting Pacing Pulse Width 0.4 [facility] Kevin Setting Mode (NBG Code) VDI [facility] Kevin Setting Lower Rate Limit 40 [facility] Therapy Statistic Recent Shocks Delivered 0 [facility] Therapy Statistic Recent ATP Delivered 0 [facility] Murj Shock Measured Impedance 64 [facility] Zone Setting Type Category Zone_VT [facility] Murj Rate 1 182 [facility] Zone Setting Status Monitor F[facility] Murj Zone ID 1 [facility] Zone Setting Type Category Zone_VT [facility] Murj Rate 1 188 [facility] Murj Therapies 2 x Burst, 40J, 40J, 40J x 6 [facility] Zone Setting Status On [facility] Murj Zone ID 2 [facility] Zone Setting Type Category Zone_VF [facility] Murj Rate 1 231 [facility] Murj Therapies Burst, 40J, 40J, 40J x 6 [facility] Zone Setting Status On [facility] Murj Zone ID 3 [facility] Implantable Lead Spiral Binder Other [facility] Implantable Lead Model [id number] [facility] Implantable Lead Location Right Ventricle [facility] Implantable Lead Connection Status Connected [facility] Implantable Lead Serial Number [id number] [facility] Implantable Lead Special Function Lead length: 65.00 cm [facility] Anatomical Region Laterality Modality Other 06/22/2024 1:18 PM TRAY FILLER Impressions 06/22/2024 1:18 PM TRAY FILLER Encounter Impression: Title: New Device Implanted * New Device Implant Date: 06/18/24 * Device implanted by Dr. Nunn at [facility] * Programmed parameters were reviewed * Underlying Rhythm: Sinus rhythm @ 68 bpm * Temporary Pacemaker Used: N * Temporary Pacemaker Site: NA * Dressing: Mepilex and PocketPress * Same Day Dismissal: Y * Summary: All device function appears normal * Interrogation performed by: Bryce Looney RN Plan: This patient underwent device interrogation. I agree that the device interrogation was medically indicated to provide appropriate care and continue routine device interrogations as indicated. Encounter Summary: This report includes 1 transmission that was received on 2024-06-18. Battery, lead impedance, sensing amplitude and pacing threshold data was reviewed. Narrative Procedure Note Dheeraj Sandoval M.D., M.P.H. - 06/22/2024 IMPRESSION: Encounter Impression: Title: New Device Implanted * New Device Implant Date: 06/18/24 * Device implanted by Dr. Nunn at [facility] * Programmed parameters were reviewed * Underlying Rhythm: Sinus rhythm @ 68 bpm * Temporary Pacemaker Used: N * Temporary Pacemaker Site: NA * Dressing: Mepilex and PocketPress * Same Day Dismissal: Y * Summary: All device function appears normal * Interrogation performed by: Bryce Looney RN Plan: This patient underwent device interrogation. I agree that the deviceinterrogation was medically indicated to provide appropriate care andcontinue routine device interrogations as indicated. Encounter Summary: This report includes 1 transmission that was receivedon 2024-06-18. Battery, lead impedance, sensing amplitude and pacingthreshold data was reviewed. Denita Mayers APRN, C.N.P., M.S.N. CV IMPLANTABLE CARDIAC DEVICE Edited Result - Final documented in this encounter Visit Diagnoses Diagnosis Presence Of Automatic (Implantable) Cardiac Defibrillator With Synchronous Cardiac Pacemaker (ICD And AICD)- Primary Cardiomyopathy Dilated (HCC) Cardiomyopathy (HCC) Chronic Systolic (Congestive) Heart Failure (HCC) Cardiomyopathy Dilated (HCC) Cardiomyopathy (HCC) documented in this encounter Admitting Diagnoses Diagnosis Cardiomyopathy Dilated (HCC) Cardiomyopathy (HCC) documented in this encounter Administered Medications Inactive Administered Medications - up to 3 most recent administrations Medication Order MAR Action Action Date Dose Rate Site acetaminophen tablet 1,000 mg (TylenoL) 1,000 mg, oral, Every 6 hours PRN, mild pain or score 1-3 of 10, Starting on Shannan 06/18/24 at 1301, PACU & Post-Op fentaNYL injection 25 mcg (Sublimaze) 25 mcg, intravenous, Every 2 hour PRN, moderate pain or score 4-6 of 10, Starting on Shannan 06/18/24 at 1301, PACU & Post-Op, May repeat x1 dosing interval, if patient unable to take oral analgesics or oral analgesics are ineffective fentaNYL injection 50 mcg (Sublimaze) 50 mcg, intravenous, Every 2 hour PRN, severe pain or score 7-10 of 10, Starting on Shannan 06/18/24 at 1301, PACU & Post-Op, May repeat x1 dosing interval, if patient unable to take oral analgesics or oral analgesics are ineffective lidocaine 10 mg/mL (1 %) injection (Xylocaine) Code/trauma/sedation medication, Starting on Shannan 06/18/24 at 1039, Intraprocedure (CV) Given 06/18/2024 10:51 AM TRAY FILLER 6 mL Left Chest Given 06/18/2024 10:39 AM TRAY FILLER 17 mL L eft Chest naloxone injection 0.2 mg (Narcan) 0.2 mg, intravenous, As needed, respiratory depression, Starting on Shannan 06/18/24 at 1301, PACU & Post-Op, For RASS Score -4 or less, respiratory rate of less than 8 breaths/min. Notify provider/service and rapid response team (if available at institution). oxyCODONE IR tablet 10 mg (Roxicodone) 10 mg, oral, Every 6 hours PRN, severe pain or score 7-10 of 10, Starting on Shannan 06/18/24 at 1301, PACU & Post-Op, If patient able to take oral analgesics oxyCODONE IR tablet 5 mg (Roxicodone) 5 mg, oral, Every 6 hours PRN, moderate pain or score 4-6 of 10, Starting on Shannan 06/18/24 at 1301, PACU & Post-Op, If acetaminophen ineffective and patient able to take oral analgesics Given 06/18/2024 2:13 PM TRAY FILLER 5 mg Mouth sodium chloride 0.9 % injection 10 mL 10 mL, intravenous, As needed, line care, Peripheral Intravenous Catheter and Rapid Infusion Catheter, Starting on Shannan 06/18/24 at 0824, Preprocedure (CV), Prior to blood sampling, post blood transfusion or post blood sampling. sodium chloride 0.9 % injection 3 mL 3 mL, intravenous, As needed, line care, Peripheral Intravenous Catheter and Rapid Infusion Catheter, Starting on Shannan 06/18/24 at 0824, Preprocedure (CV), Prior to and following infusion and between multiple consecutive infusions. sodium chloride 0.9 % injection 3 mL 3 mL, intravenous, Every 12 hours scheduled, First dose on Shannan 06/18/24 at 0900, Preprocedure (CV), Peripheral Intravenous Catheter and Rapid Infusion Catheter: When no infusion to maintain patency. documented in this encounter Active and Recently Administered Medications Times are shown in [facility]. Scheduled Medication Order 06/16/2024 06/17/2024 06/18/2024 sodium chloride 0.9 % injection 3 mL 3 mL, intravenous, Every 12 hours scheduled, First dose on Shannan 06/18/24 at 0900, Preprocedure (CV), Peripheral Intravenous Catheter and Rapid Infusion Catheter: When no infusion to maintain patency. 0900 (Due) PRN Medication Order 06/16/2024 06/17/2024 06/18/2024 acetaminophen tablet 1,000 mg (TylenoL) 1,000 mg, oral, Every 6 hours PRN, mild pain or score 1-3 of 10, Starting on Shannan 06/18/24 at 1301, PACU & Post-Op fentaNYL injection 25 mcg (Sublimaze) 25 mcg, intravenous, Every 2 min PRN, moderate pain or score 4-6 of 10, severe pain or score 7-10 of 10, Starting on Shannan 06/18/24 at 1301, PACU (only), Up to maximum total dose of 200 mcg fentaNYL injection 25 mcg (Sublimaze)(Linked Group 1) 25 mcg, intravenous, Every 2 hour PRN, moderate pain or score 4-6 of 10, Starting on Shannan 06/18/24 at 1301, PACU & Post-Op, May repeat x1 dosing interval, if patient unable to take oral analgesics or oral analgesics are ineffective fentaNYL injection 50 mcg (Sublimaze)(Linked Group 1) 50 mcg, intravenous, Every 2 hour PRN, severe pain or score 7-10 of 10, Starting on Shannan 06/18/24 at 1301, PACU & Post-Op, May repeat x1 dosing interval, if patient unable to take oral analgesics or oral analgesics are ineffective lidocaine 10 mg/mL (1 %) injection (Xylocaine) (CANCELED) Code/trauma/sedation medication, Starting on Shannan 06/18/24 at 1039, Intraprocedure (CV) 1039 (Given - Provid er: Miguelito FuB.B.S.)1051 (Given - Provider: Holli FuB.S.) naloxone injection 0.2 mg (Narcan) 0.2 mg, intravenous, As needed, respiratory depression, Starting on Shannan 12/12/24 at 1301, PACU & Post-Op, For RASS Score -4 or less, respiratory rate of less than 8 breaths/min. Notify provider/service and rapid response team (if available at institution). oxyCODONE IR tablet 10 mg (Roxicodone)(Linked Group 2) 10 mg, oral, Every 6 hours PRN, severe pain or score 7-10 of 10, Starting on Shannan 12/12/24 at 1301, PACU & Post-Op, If patient able to take oral analgesics 1413 (See Alternativ e - Provider: Jimena Sky R.N.) oxyCODONE IR tablet 5 mg (Roxicodone)(Linked Group 2) 5 mg, oral, Every 6 hours PRN, moderate pain or score 4-6 of 10, Starting on Shannan 12//24 at 1301, PACU & Post-Op, If acetaminophen ineffective and patient able to take oral analgesics 1413 (Given - Provid er: Jimena Sky R.N.) sodium chloride 0.9 % injection 10 mL 10 mL, intravenous, As needed, line care, Peripheral Intravenous Catheter and Rapid Infusion Catheter, Starting on Shannan 24 at 0824, Preprocedure (CV), Prior to blood sampling, post blood transfusion or post blood sampling. sodium chloride 0.9 % injection 3 mL 3 mL, intravenous, As needed, line care, Peripheral Intravenous Catheter and Rapid Infusion Catheter, Starting on Shannan 12//24 at 0824, Preprocedure (CV), Prior to and following infusion and between multiple consecutive infusions. Linked Groups Order Group 1: fentaNYL injection 25 mcg (Sublimaze)Jump to med 25 mcg, intravenous, Every 2 hour PRN, moderate pain or score 4-6 of 10, Starting on Shannan 12//24 at 1301, PACU & Post-Op, May repeat x1 dosing interval, if patient unable to take oral analgesics or oral analgesics are ineffective Or fentaNYL injection 50 mcg (Sublimaze)Jump to med 50 mcg, intravenous, Every 2 hour PRN, severe pain or score 7-10 of 10, Starting on Shannan 12//24 at 1301, PACU & Post-Op, May repeat x1 dosing interval, if patient unable to take oral analgesics or oral analgesics are ineffective Group 2: oxyCODONE IR tablet 5 mg (Roxicodone)Jump to med 5 mg, oral, Every 6 hours PRN, moderate pain or score 4-6 of 10, Starting on Shannan 06/18/24 at 1301, PACU & Post-Op, If acetaminophen ineffective and patient able to take oral analgesics Or oxyCODONE IR tablet 10 mg (Roxicodone)Jump to med 10 mg, oral, Every 6 hours PRN, severe pain or score 7-10 of 10, Starting on Shannan 06/18/24 at 1301, PACU & Post-Op, If patient able to take oral analgesics documented in this encounter Additional Health Concerns Assessment Noted Time PHQ-9 Depression Total Score: 4 11/30/19 21 1:39 PM CDT documented as of this encounter Care Teams Director Medical Surgical Relationship Specialty Start Date End Date Subha Benito M.D., M.S. [address] [place] [address] PCP - General Family Medicine 03 documented as of this encounter
--- OUTSIDE RECORDS SUMMARY | 2024-07-17 19:28 | XMS_ITS | Encounter Summary ---
Author Organization [facility] Address [address] [place] [address] Care Team Providers Care Assembly Supervisor Name Role Phone Subha Benito M.D., M.S. Primary Care Provide r Reason for Visit * Auth/Cert (Routine) Specialty Diagnoses / Procedures Referred By Henrry ludwig Referred To Contact Diagnoses Cardiomyopathy Dilated (HCC) Cardiomyopathy (HCC) Cardiomyopathy Dilated (HCC) [I42.0] Cardiomyopathy (HCC) [I42.9] Procedures PA INS/RPLC DFIB W TRANSVEN LEAD PA AICD, OTHER THAN SING/DUAL ICD IMPLANT - SINGLE CHAMBER Crispin Arevalo M.B.B.S. [address] [place] [phone] Phone: tel: fax: Referral ID Status Reason Start Date Expiration Date Visits Re quested Visits Authorized [id number] 1 1 Encounter Details Date Type Department Care Team (Late st Contact Info) Description 06/18/2024 9:53 AM WELFARE MANAGER Anesthesia Event Division of Cardiovascular Diseases in [place], [place] [address] [place] [phone] Darling Ahn APRN, CRNA DNACarlos [address] [place] [phone] Anesthesia Record Procedure Summary Procedure Name Responsible Anesthesiologist Anesthesia Start Time Anesthesia Stop Time ICD IMPLANT - SINGLE CHAMBER (Left) Darling Ahn APRN, CRNA DNACarlos 06/18/24 0953 06/18/24 1247 Events Date Time Event Comment 06/18/2024 0953 An Start Machine/Equipme nt Checked Infection Precautions Followed Procedure/Site Verified NPO Status Verified Supine Standard ASA Monitors Applied 1012 Turnover to Proceduralist 1034 Proc Start 1233 Proc Fin 1236 Turnover to ANE Staff 1236 an stop data 1247 An End I completed my handoff to the receiving staff during which we 1. Identified the patient 2. Identified the responsible provider 3. Reviewed the pertinent medical history 4. Discussed the surgical course 5. Reviewed intra-op anesthesia management and issues during anesthesia 6. Set expectations for post-procedure period 7. Allowed opportunity for questions and acknowledgement of understanding. Meds Name Total fentanyl injection 50 mcg/mL 100 mcg lidocaine 2% (mg) injection 40 mg ondansetron PF 4 mg/2 mL injection 4 mg propofol 10 mg/mL infusion 173.39 mg remimazolam (Byfavo) injection 20 mg/8 m L (2.5 mg/mL) (RESTRICTED) 14 mg acetaminophen (TylenoL) 500 mg tablet 1, 000 mg ceFAZolin (Ancef) injection 1 g/5 mL 2 g ePHEDrine PF 5 mg/mL syringe injection 5 mg Lactated Ringers Free Drip 500 mL * Agents No agents on file. * Blood No blood administrations on file. Lines, Drains, and Airways Type Details Placement Removal Peripheral IV Placement Date: 06/07 08/31; Placement Time: 09; Catheter Size: 20 G; Orientation: Anterior, Left, Lower; Location: Arm; Site Prep: Alcohol; Technique: Anatomical landmarks; Removal Date: 06/18/24; Removal Time: 161906/18/24 0902 by Edu Lopez, R.NIvan 06/18/24 162 by Jimena Sky, R.NIvan Arterial Line Placement Date: 06/07 08/31; Placemnt Time: 100 (created via procedure documentation); Size: 20 G; Orientation: Right; Location: Radial; Site Prep: Chlorhexidine (Preferred); Technique: Anatomical landmarks; Insertion Attempts: 3; Securement: Securement dressing, Securement device; Removal Date: 06/18/24; Removal Time: 161906/18/24 1008 by Darling Ahn, SPRAY APPLICATOR, OIL RIG ROUGHNECK, DNAP 06/18/24 1620 by Jimena Sky R.N. Wound 06/18/24; 1044; N; Incision; Chest; Left, Upper; ICD pocket; 06/18/24; 1620 06/18/24 1044 by Renee Swan R.N. 06/18/24 1620 by Jimena Sky R.N. documented in this encounter Social History Tobacco Use Types Packs/Day Years Used Date Smoking Tobacco: Never Smokeless Tobacco: Former Chew Quit: 10/21/2023 Alcohol Use Standard Drinks/Week Comments Yes 2 (1 standard drink = 0.6 oz pur e alcohol) [facility] Utilities Answer Date Recorded In the past 12 months has e electric, gas, oil, or water [employer] threatened to shut off services in your [...] your living situation today? I have a [facility] place to live 01/30/2024 Sex and Gender Information Value Date Recorded Sex Assigned at Male 01/30/2024 10:17 AM CDT Legal Sex Male 5:27 AM WELFARE MANAGER Gender Identity Male 01/30/2024 10:17 AM CDT Sexual Orientation Straight 01/30/2024 10 :17 AM CDT documented as of this encounter OR Notes * Anesthesia Postprocedure Evaluation - Darling Ahn APRN, CRNA, DNAP - 06/18/2024 12:47 PM CST Patient: Alyssa Chaparro Procedure Summary Date: 06/18/24 Room / Location: [place] [address] / [facility] Anesthesia Start: 952 Anesthesia Stop: 1247 Procedure: ICD IMPLANT - SINGLE CHAMBER (Left) Diagnosis: Cardiomyopathy Dilated (HCC) Cardiomyopathy (HCC) (Cardiomyopathy Dilated (HCC) [I42.0]) (Cardiomyopathy (HCC) [I42.9]) Surgeons: Anna Nunn M.B.BIvanSIvan Responsible Provider: Darling Ahn APRN, CRNA, DNAP Anesthesia Type: MAC ASA Status: 3 Anesthesia Type: MAC Last vitals Vitals Value Taken Time BP 114/61 06/18/24 1245 Temp Pulse 67 06/18/24 1247 Resp SpO2 97 % 06/18/24 1247 Vitals shown include unfiled device data. Please reference Vitals flowsheet for most recent vital signs. Anesthesia Post Evaluation Patient Disposition: dismissal Cardiovascular status: hemodynamics (HR & BP) acceptable Respiratory status: patent airway with spontaneous effort Temperature: normothermic Oxygen requirements: room air Level of consciousness: awake Pain score: pain adequately controlled and/or at baseline Post Op nausea/vomiting: none Hydration status: euvolemic Notable Events No notable events documented. ARE MANAGER * Anesthesia Procedure Notes - Darling Ahn APRN, CRNA, DNAP - 06/18/2024 12:27 PM CSTAssociated Order(s): Invasive Catheter Invasive Catheter Date/Time: 06/18/2024 10:08 AM Performed [...] turn: yes Notable Events - arterial: none ARE MANAGER * Anesthesia Preprocedure Evaluation - Darling Ahn APRN, CRNA, DNAP - 06/18/2024 10:23 AM CST Preprocedure Anesthesia & H&P Assessment Procedure Summary Anesthesia Start Date/Time: 06/18/24 0953 Procedure: ICD IMPLANT - SINGLE CHAMBER (Left) Diagnosis: Cardiomyopathy Dilated (HCC) [I42.0] Cardiomyopathy (HCC) [I42.9] Pre-op diagnosis: Cardiomyopathy Dilated (HCC) [I42.0] Cardiomyopathy (HCC) [I42.9] Location: [place] [address] / [facility] Surgeons: Anna Nunn M.B.B.S. Pertinent components of the patient's history including current problem list, medical history, surgical history, family history, social history, medications and allergies were reviewed. Present illness and pre-op diagnosis were confirmed. The planned surgery / procedure was verified with the patient / legal guardian. The patient's general health condition remains unchanged RELEVANT COMORBID CONDITIONS CV (+) Chronic Systolic (Congestive) Heart Failure (HCC) Circulatory (+) Cardiomyopathy Dilated (HCC) OBJECTIVE PHYSICAL EXAMINATION Airway (HEENT) Mallampati: I TM Distance: >3 FB Neck ROM: Full Mouth Opening: >3 cm Upper Lip Bite Test Class: I Cardiovascular Rhythm: Regular Rate: Normal Cardiovascular Assessment: cardiovascular normal Functional Capacity: >4 METS Pulmonary Pulmonary Assessment: Clear General / Constitutional Constitutional Assessment: Normal General State of Health:: healthy appearing and calm Neurological Neurologic Assessment: alert and alert and oriented x 3 Dental Dental Assessment: dentition intact ASSESSMENT / PLAN ANESTHESIA PLAN ASA: 3 Anesthesia Plan: MAC Patient seen and allergies reviewed, anesthesia plan and risks discussed directly with patient /legal guardian or through an spanish interpreter/translator. Risks/Benefits/Alternatives of Blood transfusion discussed with patient / legal guardian, includingan opportunity to ask questions and/or decline some or all transfusion therapies. The patient / legal guardian consented to the use of all blood products, as deemed medically necessary Approval to Proceed: approved for anesthesia ARE MANAGER documented in this encounter Plan of Treatment Upcoming Encounters Date Type Department Care Team (Late st Contact Info) Description 09/16/2024 10:00 AM CDT Appointment Department of Cardiovascular Diseases in [place], [place] [address] [place] [phone] Priyank Metzger M.D., Ph.D. [address] [place] [address] documented as of this encounter Procedures Procedure Name Priority Date/Time Associated Diagnosis Comments LDA ANE ARTERIAL LINE INSERTION Routine 06/18/2024 10:08 AM WELFARE MANAGER PA ARTL CATH/CNULA MONITOR PERC Routine 06/18/2024 10:08 AM WELFARE MANAGER documented in this encounter Results * PA ARTL CATH/CNULA MONITOR PERC, LDA ANE ARTERIAL LINE INSERTION (06/18/2024 10:08 AM WELFARE MANAGER) Narrative Darling Ahn APRN, CRNA DNAP - 06/18/2024 10:08 AM WELFARE MANAGER Darling hAn APRN, CRNA DNAP 06/18/2024 12:28 PM Invasive Catheter Date/Time: 06/18/2024 10:08 AM Performed by: Darling Ahn APRN, CRNA DNAP Authorized by: Darling Ahn APRN, CRNA DNACarlos [...] turn: yes Notable Events - arterial: none us Darling Ahn SPRAY APPLICATOR, OIL RIG ROUGHNECK, DNAP PROCEDURE/LATOYA R SURGICAL ORDERABLES Final Result documented in this encounter Visit Diagnoses Not on filedocumented in this encounter Administered Medications Inactive Administered Medications - up to 3 most recent administrations Medication Order MAR Action Action Date Dose Rate Site acetaminophen tablet (TylenoL) oral, As needed, Starting on Shannan 06/18/24 at 0956, Anesthesia Intra-op Given 06/18/2024 9:51 AM WELFARE MANAGER 1,000 mg ceFAZolin injection (Ancef) intravenous, As needed, Starting on Shannan 06/18/24 at 1031, Anesthesia Intra-op Given 06/18/2024 10:31 AM WELFARE MANAGER 2 g ePHEDrine (PF) injection intravenous, As needed, Starting on Shannan 06/18/24 at 1047, Anesthesia Intra-op Given 06/18/2024 10:47 AM WELFARE MANAGER 5 mg fentaNYL injection (Sublimaze) intravenous, As needed, Starting on Shannan 06/18/24 at 1039, Anesthesia Intra-op Given 06/18/2024 11:46 AM WELFARE MANAGER 50 mcg Given 06/18/2024 10:39 AM WELFARE MANAGER 50 mcg Lactated Ringer's intravenous, Continuous Infusion: Per Instructions PRN, Starting on Shannan 06/18/24 at 0955, Anesthesia Intra-op New Bag 06/18/2024 9:55 AM WELFARE MANAGER lidocaine (PF) (cardiac) injection intravenous, As needed, Starting on Shannan 06/18/24 at 1008, Anesthesia Intra-op Given 06/18/2024 9:59 AM WELFARE MANAGER 40 mg ondansetron (PF) injection (Zofran) intravenous, As needed, Starting on Shannan 06/18/24 at 1146, Anesthesia Intra-op Given 06/18/2024 11:46 AM WELFARE MANAGER 4 mg propofol 10 mg/mL infusion (Diprivan) intravenous, Continuous Infusion: Per Instructions PRN, Starting on Shannan 06/18/24 at 1000, Anesthesia Intra-op Rate/Dose Change 06/18/2024 10:47 AM WELFARE MANAGER 15 mcg/kg/min 6.435 mL/hr Rate/Dose Change 06/18/2024 10:18 AM WELFARE MANAGER 20 mcg/kg/min 8.5 8 mL/hr New Bag 06/18/2024 10:00 AM WELFARE MANAGER 15 mcg/kg/min 6.435 mL/ hr remimazolam injection (Byfavo) intravenous, As needed, Starting on Shannan 06/18/24 at 1002, Anesthesia Intra-op Given 06/18/2024 11:47 AM WELFARE MANAGER 2 mg Given 06/18/2024 11:14 AM WELFARE MANAGER 2 mg Given 06/18/2024 10:32 AM WELFARE MANAGER 2 mg documented in this encounter Additional Health Concerns Assessment Noted Time PHQ-9 Depression Total Score: 4 11/30/19 21 1:39 PM CDT documented as of this encounter Care Teams Assembly Supervisor Relationship Specialty Start Date End Date Subha Benito M.D., M.S. [address] [place] [phone] PCP - General Family Medicine 03 documented as of this encounter
--- OUTSIDE RECORDS SUMMARY | 2024-07-17 19:28 | XMS_ITS | Encounter Summary ---
Author Organization [facility] Address [address] [place] [address] Care Team Providers Care Zoo Keeper Name Role Phone Subha Benito M.D., M.S. Primary Care Provide r Reason for Visit * Reason Onset Date Comments Med Refill 06/15/2024 Encounter Details Date Type Department Care Team (Late st Contact Info) Description 06/15/2024 Refill Department of Cardiovascular Medicine in [place], [place] [address] [place] [phone] Kaitlynn Jiménez M.D. [address] [place] [phone] Med Refill Social History Tobacco Use Types Packs/Day Years Used Date Smoking Tobacco: Never Smokeless Tobacco: Former Chew Quit: 10/21/2023 Alcohol Use Standard Drinks/Week Comments Yes 2 (1 standard drink = 0.6 oz pur e alcohol) [facility] Utilities Answer Date Recorded In the past 12 months has [employer], gas, oil, or water [employer] threatened to shut off services in your [...] your living situation today? I have a [facility] place to live 01/30/2024 Sex and Gender Information Value Date Recorded Sex Assigned at Male 01/30/2024 10:17 AM CDT Legal Sex Male 5:27 AM GLUE MAKER Gender Identity Male 01/30/2024 10:17 AM CDT Sexual Orientation Straight 01/30/2024 10 :17 AM CDT documented as of this encounter Miscellaneous Notes * Telephone Encounter - Kasey Sanchez - 06/16/2024 9:17 AM CST Refill too soon. Patient has an active script at below pharmacy good until August 2024. Please see below, thank you. Disp Refills Start End spironolactone (Aldactone) 25 mg tablet 45 tablet 1 03/24/2024 03/24/2025 Sig - Route: Take 0.5 tablets (12.5 mg total) by mouth daily. - oral Sent to pharmacy as: spironolactone 25 mg tablet (Aldactone) E-Prescribing Status: Receipt confirmed by pharmacy (03/24/2024 1:29 PM CDT) Pharmacy [facility] [id number] [facility] [employer] - [address] THOMPSON MAKER documented in this encounter Plan of Treatment Upcoming Encounters Date Type Department Care Team (Late st Contact Info) Description 09/16/2024 10:00 AM CDT Appointment Department of Cardiovascular Diseases in [place], [place] [address] [place] [phone] Priyank Metzger M.D., Ph.D. [address] [place] [phone] documented as of this encounter Visit Diagnoses Not on filedocumented in this encounter Additional Health Concerns Assessment Noted Time PHQ-9 Depression Total Score: 4 11/30/19 21 1:39 PM CDT documented as of this encounter Care Teams Zoo Keeper Relationship Specialty Start Date End Date Subha Benito M.D., M.S. [address] [place] [phone] PCP - General Family Medicine 03 documented as of this encounter
--- OUTSIDE RECORDS SUMMARY | 2024-07-17 19:28 | XMS_ITS | Encounter Summary ---
Author Organization [facility] Address [address] [place] [address] Care Team Providers Care Manager Medicare Name Role Phone Subha Benito M.D., M.S. Primary Care Provide r Encounter Details Date Type Department Care Team (Latest Contact Info) Description 06/18/2024 Orders Only Department of Cardiovascular Medicine in [place], [place] [address] [place] [phone] Miguel Angel Ahmadi, RIvanNIvan [address] [place] [phone] Aftercare Cardiac Defibrillator (Primary Dx) Social History Tobacco Use Types Packs/Day Years Used Date Smoking Tobacco: Never Smokeless Tobacco: Former Chew Quit: 10/21/2023 Alcohol Use Standard Drinks/Week Comments Yes 2 (1 standard drink = 0.6 oz pur e alcohol) [facility] Utilities Answer Date Recorded In the past 12 months has [employer], gas, oil, or water [employer] threatened to shut off services in your [...] your living situation today? I have a [facility] place to live 01/30/2024 Sex and Gender Information Value Date Recorded Sex Assigned at Male 01/30/2024 10:17 AM CDT Legal Sex Male 5:27 AM MARKET RESEARCH COORDINATOR Gender Identity Male 01/30/2024 10:17 AM CDT Sexual Orientation Straight 01/30/2024 10 :17 AM CDT documented as of this encounter Plan of Treatment Upcoming Encounters Date Type Department Care Team (Late st Contact Info) Description 09/16/2024 10:00 AM CDT Appointment Department of Cardiovascular Diseases in [place], [place] [address] [place] [address] Priyank Metzger M.D., Ph.D. [address] [place] [address] Scheduled Orders Name Type Priority Associated Diagnoses Orde r Schedule Cardiac Device Interrogation Implantable Cardiac Device Routine Aftercare Cardiac Defibrillator Expected: 09/16/2024, Expires: 09/16/2025 documented as of this encounter Visit Diagnoses Diagnosis Aftercare Cardiac Defibrillator- Primary documented in this encounter Additional Health Concerns Assessment Noted Time PHQ-9 Depression Total Score: 4 11/30/19 21 1:39 PM CDT documented as of this encounter Care Teams Manager Medicare Relationship Specialty Start Date End Date Subha Benito M.D., M.S. [address] [place] [phone] PCP - General Family Medicine 03 documented as of this encounter
--- OUTSIDE RECORDS SUMMARY | 2024-07-17 19:28 | XMS_ITS | Encounter Summary ---
Author Organization [facility] Address [address] [place] [phone] Care Team Providers Care Hospice Rn Name Role Phone Subha Benito M.D., M.S. 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 200 [place] [address] Phone: tel: fax: Referral ID Status Reason Start Date Expiration Date Visits Re quested Visits Authorized [id number] 1 1 Encounter Details Date Type Department Care Team (Latest Contact Info) Description 06/18/2024 7:58 AM BEHAVIORAL CONSULTANT - 06/18/2024 4:36 PM BEHAVIORAL CONSULTANT Hospital Encounter Division of Cardiovascular Diseases in [place], [place] [address] [place] [phone] Anna Nunn M.B.B.S. [address] [place] [phone] Cardiomyopathy Dilated (HCC); Cardiomyopathy (HCC) Discharge Disposition: Home or Self Care Social History Tobacco Use Types Packs/Day Years Used Date Smoking Tobacco: Never Smokeless Tobacco: Former Chew Quit: 10/21/2023 Alcohol Use Standard Drinks/Week Comments Yes 2 (1 standard drink = 0.6 oz pur e alcohol) [facility] Utilities Answer Date Recorded In the past 12 months has th e Chef, gas, oil, or water company threatened to [...] your living situation today? I have a [facility] place to live 01/30/2024 Sex and Gender Information Value Date Recorded Sex Assigned at Male 01/30/2024 10:17 AM CDT Legal Sex Male 5:27 AM BEHAVIORAL CONSULTANT Gender Identity Male 01/30/2024 10:17 AM CDT Sexual Orientation Straight 01/30/2024 10 :17 AM CDT documented as of this encounter Last Filed Vital Signs Vital Sign Reading Time Taken Comments Blood Pressure 91/67 06/18/2024 3:45 PM BEHAVIORAL CONSULTANT Pulse 74 06/18/2024 3:54 PM BEHAVIORAL CONSULTANT Temperature 36.5 C (97.7 F) 06/18/2024 8:19 AM BEHAVIORAL CONSULTANT Respiratory Rate - - Oxygen Saturation 97% 06/18/2024 3:54 PM BEHAVIORAL CONSULTANT Inhaled Oxygen Concentration - - Weight 71.5 kg (157 lb 10.1 oz) 06/18/2024 8:19 AM BEHAVIORAL CONSULTANT Height 173.2 cm (5' 8.19) 06/18/2024 8:19 AM CS T Body Mass Index 23.83 06/18/2024 8:19 AM BEHAVIORAL CONSULTANT documented in this encounter Discharge Summaries * Brenda Verdin APRN, C.N.P., M.S.N. - 06/18/2024 4:09 PM CST DISCHARGE SUMMARY BRIEF OVERVIEW Admission Date: 06/18/2024 Discharge Date: 06/18/24 Discharge Provider: Anna Nunn M.B.BIvanSIvan Discharge Provider Team: [facility] Interventional/Heart Rhythm PRINCIPAL DIAGNOSIS Hospital Problems [...] [facility]. Patient instructed to [...] The first appointment will be at the [facility]. The patient will be contacted by [facility] to set up this appointment. After this appointment, routine follow-up will continue with remote home monitoring. A remote home monitor has been given to the patient. They were instructed to verify communication between the monitor and the deviceand instructed to send a transmission within the first week after returning home. Then call the [facility] at ([phone]) during regular business hours (Saturday-Saturday, 8 a.m. [...] General (Family Medicine) Crispin Arevalo M.B.B.S. as Film Coater Physician (Cardiovascular Diseases) VIORAL CONSULTANT documented in this encounter Discharge Instructions * Discharge Instructions* Miguel Angel Ahmadi, RKerri. - 06/18/2024 10:30 AM BEHAVIORAL CONSULTANT You were discharged from the [facility] CVD Interventional/Heart Rhythm Service. Please identify [...] (usually 3-4 weeks). Pain: You may use [id number] Extra Strength Tylenol (acetaminophen) 500 mg tablets, one to two tablets by mouth every six hours as needed for incisional discomfort. DO NOT EXCEED 4 grams of acetaminophen in any 24-hour period. Follow-Up: An in-clinic device interrogation is scheduled on 06/19/24, at 0830 AM. Please take the [facility] elevator to the 1st floor and check-in to [address] Exam Desk at the scheduled time.(Sign [...] us to request this transfer at or [phone]. Remote Transmitter: You will be provided with [...] verify this initial connection by calling the [facility] at or [phone] during clinic hours Saturday through Saturday, 8:00 AM - 4:30 PM BEHAVIORAL CONSULTANT. Please contact your device company with concerns or issues regarding your home transmitter. [employer] [phone] [employer] [phone] Mike / [facility] [phone] [employer] [phone] ICD alert tones/vibration: Your ICD will beep [...] DO NOT drive yourself to the hospital. [facility] at or [phone] ALWAYS call 911 in the event of an emergency. VIORAL CONSULTANT VIORAL CONSULTANT documented in this encounter Medications at Time [...] Acute Pain. 12 tablet 06/18/2024 4:53 PM BEHAVIORAL CONSULTANT 06/18/2024 06/21/2024 metoprolol succinate (Toprol XL) 50 mg 24 hr tablet Take 1.5 tablets (75 mg total) by mouth daily. Do not crush or chew tablet. 45 tablet 2 06/19/2024 1:03 PM BEHAVIORAL CONSULTANT 06/08/2024 06/25/2024 spironolactone (Aldactone) 25 mg tablet [...] followed down to the IVC. A 9 Liberian introducer sheath was placed into the vein. [...] Follow-up in device clinic in 3 months. VIORAL CONSULTANT documented in this encounter Miscellaneous Notes * Hospital Course - Brenda Verdin APRN, C.N.P., M.S.N. - 06/18/2024 12:04 PM [...] reviewed with the patient prior to discharge. VIORAL CONSULTANT VIORAL CONSULTANT documented in this encounter Plan of Treatment Upcoming Encounters Date Type Department Care Team (Late st Contact Info) Description 09/16/2024 10:00 AM CDT Appointment Department of Cardiovascular Diseases in [place], [place] [address] [place] [phone] Priyank Metzger M.D., Ph.D. [address] [place] [phone] documented as of this encounter Procedures Procedure Name Priority Date/Time Associated Diagnosis Comments DX CHEST AP OR PA AND LATERAL 2 VIEWS RAD - Routine (most inpatients and all outpatients) 06/18/2024 2:54 PM BEHAVIORAL CONSULTANT ECG Routine 06/18/2024 1:13 PM BEHAVIORAL CONSULTANT ADULT OXYGEN THERAPY Routine 06/18/2024 1:01 PM BEHAVIORAL CONSULTANT ADULT OXYGEN THERAPY Routine 06/18/2024 1:01 PM BEHAVIORAL CONSULTANT HEART RHYTHM PROCEDURE Routine 06/18/2024 12:41 PM BEHAVIORAL CONSULTANT Cardiomyopathy Dilated (HCC) Cardiomyopathy (HCC) CAR CARDIAC DEVICE INTERROGATION Routine 06/18/2024 9:04 AM BEHAVIORAL CONSULTANT documented in this encounter Results * DX Chest AP or PA and Lateral 2 Views (06/18/2024 2:54 PM BEHAVIORAL CONSULTANT) Anatomical Region Laterality Modality Chest, Thoracic RST LOS, Tho racic ARZ LOS, Thoracic FLA LOS N/A Digital Radiography Impressions 06/18/2024 4:00 PM BEHAVIORAL CONSULTANT Single chamber ICD.No focal consolidation, large pleural effusion, or discernible pneumothorax. Narrative 06/18/2024 4:00 PM BEHAVIORAL CONSULTANT EXAM: DX CHEST AP OR PA AND LATERAL 2 VIEWS Procedure Note Jorge Obrien D.O. - 06/18/2024 EXAM: DX CHEST AP OR PA AND LATERAL 2 VIEWS IMPRESSION: Single chamber ICD.No focal consolidation, large pleural effusion, ordiscernible pneumothorax. us Brenda Verdin APRN, C.N.P., M.S.N. IMG DIAGNOSTI C IMAGING PROCEDURES Final Result * ECG 12 Lead (06/18/2024 1:13 PM BEHAVIORAL CONSULTANT) Ventricular Rate ECG/Min 56 BPM MUSE LA Interval 130 ms MUSE QRSD Interval 108 ms MUSE QT Interval 418 ms MUSE QTC Interval 403 ms MUSE P [place] 47 degrees MUSE R [place] 83 degrees MUSE T Wave [place] 172 degrees MUSE 06/18/2024 1:13 PM BEHAVIORAL CONSULTANT 06/18/2024 1:27 PM BEHAVIORAL CONSULTANT Impressions MUSE - 06/18/2024 1:27 PM BEHAVIORAL CONSULTANT Sinus bradycardia Moderate voltage criteria for LVH, [...] Reviewed by DAYNA López us Earnestine Reynoso APRN.NRamo., M.S.N. ECG ORDERABLE S Final Result MUSE NA * ICD IMPLANT - SINGLE CHAMBER (06/18/2024 12:41 PM BEHAVIORAL CONSULTANT) Anatomical Region Laterality Modality X-Ray Angiograph y 06/18/2024 10:3 4 AM BEHAVIORAL CONSULTANT Narrative 06/19/2024 4:27 PM BEHAVIORAL CONSULTANT For the complete report, see the Order-Level [...] followed down to the IVC. A 9 Liberian introducer sheath was placed into the vein. [...] wasfollowed down to the IVC. A 9 Liberian introducer sheath was placed into the vein. [...] DEVICE - NO CHARGE (06/18/2024 9:04 AM BEHAVIORAL CONSULTANT) Date Time Interrogation Session [facility] Implantable Pulse Generator Nuclear Weapons Specialist [employer] [facility] Implantable Pulse Generator Type Defibrillator [facility] Implantable Pulse Generator Model Acticor 7 VR-T DX [facility] Implantable Pulse Generator Serial Number [id number] [facility] Implantable Pulse Generator Implant Date 20240618 [facility] Battery Remaining Percentage 100.00 % [facility] Battery Voltage 3.090 [facility] Battery Status JAIME [facility] AT[facility] [...] SYSTEM Lead Channel Setting Pacing Amplitude 1.300 [facility] Lead Channel Setting Pacing [...] 3 [facility] Implantable Lead Nuclear Weapons Specialist Other [facility] Implantable Lead Model [id number] [facility] Implantable Lead Location Right Ventricle [facility] Implantable Lead Connection Status Connected [facility] Implantable Lead Serial Number [id number] [facility] Implantable Lead Special Function Lead length: 65.00 cm [facility] Anatomical Region Laterality Modality Other 06/22/2024 1:18 PM BEHAVIORAL CONSULTANT Impressions 06/22/2024 1:18 PM BEHAVIORAL CONSULTANT Encounter Impression: Title: New Device Implanted * New Device Implant Date: 06/18/24 * Device implanted by Dr. Nunn at [facility] * Programmed parameters were reviewed * Underlying [...] * Device implanted by Dr. Nunn at [facility] * Programmed parameters were reviewed * Underlying [...] and pacingthreshold data was reviewed. Denita Mayers APRN C.N.P., M.S.N. CV IMPLANTABLE CARDIAC DEVICE Edited [...] oral analgesics or oral analgesics are ineffective naloxone injection 0.2 mg (Narcan) 0.2 mg, [...] score 7-10 of 10, Starting on Shannan /24 at 1301, PACU & Post-Op, If patient able to take oral analgesics oxyCODONE IR tablet 5 mg (Roxicodone) 5 mg, oral, Every 6 hours PRN, moderate pain or score 4-6 of 10, Starting on Shannan 06/18/24 at 1301, PACU & Post-Op, If acetaminophen ineffective and patient able to take oral analgesics Given 06/18/2024 2:13 PM BEHAVIORAL CONSULTANT 5 mg Mouth sodium chloride 0.9 % [...] Recently Administered Medications Times are shown in BEHAVIORAL CONSULTANT. Scheduled Medication Order 06/16/2024 06/17/2024 06/18/2024 sodium [...] Intraprocedure (CV) 1039 (Given - Provid er: Bert Fu.B.B.S.)1051 (Given - Provider: Trenton Fu.B.S.) naloxone injection 0.2 mg (Narcan) 0.2 mg, [...] 12//24 at 1301, PACU & Post-Op, If patient [...] 24 at 0824, Preprocedure (CV), Prior to and [...] documented as of this encounter Care Teams Hospice Rn Relationship Specialty Start Date End Date Subha Benito M.D., M.S. [address] [place] [phone] PCP - General Family Medicine 03 documented as of this encounter
--- OUTSIDE RECORDS SUMMARY | 2024-07-17 19:28 | XMS_ITS | Encounter Summary ---
Author Organization [facility] Address [address] [place] [phone] Care Team Providers Care Ortho Rn Name Role Phone Subha Benito M.D., M.S. Primary Care Provide r Encounter Details Date Type Department Care Team (Latest Contact Info) Description 06/08/2024 8:20 AM FACULTY ADMINISTRATOR - 06/08/2024 11:59 PM [facility] Hospital Encounter Department of Laboratory Medicine and Pathology, [place], [place] [address] [place] [address] Kaitlynn Jiménez M.D. [address] [place] [phone] Cardiomyopathy (HCC); Cardiomyopathy Dilated (HCC) Discharge Disposition: Home or Self Care Social History Tobacco Use Types Packs/Day Years Used Date Smoking Tobacco: Never Smokeless Tobacco: Former Chew Quit: 10/21/2023 Alcohol Use Standard Drinks/Week Comments Yes 2 (1 standard drink = 0.6 oz pur e alcohol) [facility] Utilities Answer Date Recorded In [...] your living situation today? I have a [facility] place to live 01/30/2024 Sex and Gender Information Value Date Recorded Sex Assigned at Male 01/30/2024 10:17 AM CDT Legal Sex Male 5:27 AM FACULTY ADMINISTRATOR Gender Identity Male 01/30/2024 10:17 AM CDT [...] Acute Pain. 12 tablet 06/18/2024 4:53 PM FACULTY ADMINISTRATOR 06/18/2024 06/21/2024 metoprolol succinate (Toprol XL) 50 mg 24 hr tablet Take 1.5 tablets (75 mg total) by mouth daily. Do not crush or chew tablet. 45 tablet 2 06/19/2024 1:03 PM FACULTY ADMINISTRATOR 06/08/2024 06/25/2024 spironolactone (Aldactone) 25 mg tablet Take 0.5 tablets (12.5 mg total) by mouth daily. 45 tablet 1 03/24/2024 06/25/2024 torsemide (Demadex) 20 mg tabletIndications :Cardiomyopathy Dilated (HCC) Take 2 tablets (40 mg total) by mouth daily. 180 tablet 3 02/21/2024 06/25/2024 documented as of this encounter Plan of Treatment Upcoming Encounters Date Type Department Care Team (Late st Contact Info) Description 09/16/2024 10:00 AM CDT Appointment Department of Cardiovascular Diseases in [place], [place] [address] [place] [phone] Priyank Metzger M.D., Ph.D. [address] [place] [phone] documented as of this encounter Procedures Procedure Name Priority Date/Time Associated Diagnosis Comments CBC WITHOUT DIFFERENTIAL, B Routine 06/08/2024 8:52 AM FACULTY ADMINISTRATOR Cardiomyopathy Dilated (HCC) Cardiomyopathy (HCC) BASIC METABOLIC PANEL, S/P Routine 06/08/2024 8:52 AM FACULTY ADMINISTRATOR Cardiomyopathy Dilated (HCC) Cardiomyopathy (HCC) documented in this encounter Results * Basic Metabolic Panel (06/08/2024 8:52 AM FACULTY ADMINISTRATOR) Potassium, S 4.1 3.6 - 5.2 mmol/L 06/08/2024 9:54 AM FACULTY ADMINISTRATOR DTL Sodium, S 139 135 - 145 mmol/L 06/08/2024 9:54 AM FACULTY ADMINISTRATOR DTL Chloride, S 101 98 - 107 mmol/L 06/08/2024 9:54 AM FACULTY ADMINISTRATOR DTL Bicarbonate, S 27 22 - 29 mmol/L 06/08/2024 9:54 AM FACULTY ADMINISTRATOR DTL Anion Gap 11 7 - 15 06/08/2024 9:54 AM FACULTY ADMINISTRATOR DTL BUN (Blood Urea Nitrogen), S 21 8 - 24 mg/dL 06/08/2024 9:54 AM FACULTY ADMINISTRATOR DTL Creatinine 1.16 0.74 - 1.35 mg/dL 06/08/2024 9:54 AM FACULTY ADMINISTRATOR DTL Estimated GFR (eGFR) >90 >=60 mL/min/BSA 06/08/2024 9:54 AM FACULTY ADMINISTRATOR DTL Comment: Estimated GFR calculated using the 2020 CKD_EPI creatinine equation. Calcium, Total, S 10.0 8.6 - 10.0 mg/dL 06/08/2024 9:54 AM FACULTY ADMINISTRATOR DTL Glucose, S 96 70 - 140 mg/dL 06/08/2024 9:54 AM FACULTY ADMINISTRATOR DTL Blood (Blood, Venous) 06/08/2024 8:52 AM FACULTY ADMINISTRATOR 06/08/2024 9:25 AM FACULTY ADMINISTRATOR us Crispin Gonzalez LAB BLOOD ADD-ON Final Result [facility] [address] [place] [address], [place] DTL [facility] [address] [place] [address] * (ABNORMAL) CBC without Differential (06/08/2024 8:52 AM FACULTY ADMINISTRATOR) Hemoglobin 15.2 13.2 - 16.6 g/dL 06/08/2024 10:11 AM FACULTY ADMINISTRATOR DTL Hematocrit 46.2 38.3 - 48.6 % 06/08/2024 10:11 AM FACULTY ADMINISTRATOR DTL Erythrocytes 5.22 4.35 - 5.65 x10(12)/L 06/08/2024 10:11 AM FACULTY ADMINISTRATOR DTL MCV 88.5 78.2 - 97.9 fL 06/08/2024 10:11 AM FACULTY ADMINISTRATOR DTL RBC Distrib Width 12.5 11.8 - 14.5 % 06/08/2024 10:11 AM FACULTY ADMINISTRATOR DTL Platelet Count 319(H) 135 - 317 x10(9)/L 06/08/2024 10:11 AM FACULTY ADMINISTRATOR DTL Leukocytes 5.3 3.4 - 9.6 x10(9)/L 06/08/2024 10:11 AM FACULTY ADMINISTRATOR DTL Blood (Blood, Venous) 06/08/2024 8:52 AM FACULTY ADMINISTRATOR 06/08/2024 9:04 AM FACULTY ADMINISTRATOR Crispin De La GarzaBIvanSIvan LAB BLOOD ADD-ON Final Result [facility] [address] [place] [address], [facility] 200 [place] [address] documented in this encounter Visit Diagnoses Diagnosis Cardiomyopathy (HCC) Cardiomyopathy Dilated (HCC) documented in this encounter Additional Health Concerns Assessment Noted Time PHQ-9 Depression Total Score: 4 11/30/19 21 1:39 PM CDT documented as of this encounter Care Teams Ortho Rn Relationship Specialty Start Date End Date Subha Benito M.D., M.S. [address] [place] [phone] PCP - General Family Medicine 03 documented as of this encounter
--- OUTSIDE RECORDS SUMMARY | 2024-07-17 19:28 | XMS_ITS | Encounter Summary ---
Author Organization [facility] Address [address] [place] [address] Care Team Providers Care Generation Technician Name Role Phone Subha Benito M.D., M.S. Primary Care Provide r Encounter Details Date Type Department Care Team (Latest Contact Info) Description 06/19/2024 7:58 AM ANESTHESIA ATTENDING - 06/19/2024 11:[address] [facility] Hospital Encounter Department of Cardiovascular Diseases in [place], [place] [address] [place] [phone] Crispin Arevalo M.B.B.S. [address] [place] [phone] Cardiomyopathy Dilated (HCC); Cardiomyopathy (HCC) Discharge Disposition: Home or Self Care Social History Tobacco Use Types Packs/Day Years Used Date Smoking Tobacco: Never Smokeless Tobacco: Former Chew Quit: 10/21/2023 Alcohol Use Standard Drinks/Week Comments Yes 2 (1 standard drink = 0.6 oz pur e alcohol) [facility] Utilities Answer Date Recorded In the past 12 months has [employer] electric, gas, oil, or water company threatened [...] your living situation today? I have a [facility] place to live 01/30/2024 Sex and Gender Information Value Date Recorded Sex Assigned at Male 01/30/2024 10:17 AM CDT Legal Sex Male 5:27 AM ANESTHESIA ATTENDING Gender Identity Male 01/30/2024 10:17 AM CDT [...] Acute Pain. 12 tablet 06/18/2024 4:53 PM ANESTHESIA ATTENDING 06/18/2024 06/21/2024 metoprolol succinate (Toprol XL) 50 mg 24 hr tablet Take 1.5 tablets (75 mg total) by mouth daily. Do not crush or chew tablet. 45 tablet 2 06/19/2024 1:03 PM ANESTHESIA ATTENDING 06/08/2024 06/25/2024 spironolactone (Aldactone) 25 mg tablet [...] CDT Appointment Department of Cardiovascular Diseases in [place], [place] [address] [place] [phone] Priyank Metzger M.D., Ph.D. [address] [place] [phone] documented as of this encounter Procedures Procedure Name Priority Date/Time Associated Diagnosis Comments ICD SINGLE CHAMBER INTERROGATION WITH PROGRAMMING Routine 06/19/2024 8:52 AM ANESTHESIA ATTENDING Cardiomyopathy Dilated (HCC) Cardiomyopathy (HCC) documented in this encounter Results * ICD SINGLE CHAMBER INTERROGATION WITH PROGRAMMING (06/19/2024 8:52 AM ANESTHESIA ATTENDING) Date Time Interrogation Session [id number] [facility] Implantable Pulse Generator Director Of Casino Marketing [employer] [facility] Implantable Pulse Generator Type Defibrillator [facility] Implantable Pulse Generator Model Acticor 7 VR-T DX [facility] Implantable Pulse Generator Serial Number [id number] [facility] Implantable Pulse Generator Implant Date 20240618 [facility] Battery Voltage 3.090 [facility] Battery Status JAIME [facility] Kevin Statistic RV Percent Paced 0.00 [facility] Atrial Tachy Statistic AT/AF [place] Percent 0.00 [facility] Lead Channel Sensing Intrinsic Amplitude 14.900 [facility] Lead Channel Setting Sensing Sensitivity 1.00 [facility] Lead Channel Sensing Intrinsic Amplitude 24.200 [facility] Lead Channel Setting Sensing Sensitivity 0.80 [facility] Lead Channel Impedance Value 618 [facility] Lead Channel Pacing Threshold Amplitude 0.400 [facility] Lead Channel Pacing Threshold Pulse Width 0.4 [facility] Lead Channel Setting Pacing Amplitude 3.500 [facility] Lead Channel Setting Pacing Pulse Width 0.4 [facility] Kevin Setting Mode (NBG Code) VDI [facility] Kevin Setting Lower Rate Limit 40 [facility] Therapy Statistic Recent Shocks Delivered 0 [facility] Therapy Statistic Recent ATP Delivered 0 [facility] Murj Shock Measured Impedance 57 [facility] Zone Setting Type Category VT [...] F[facility] Zone Setting Status On [facility] Murj Zone ID 9 [facility] Implantable Lead Director Of Casino Marketing Other [facility] Implantable Lead Model [id number] [facility] Implantable Lead Location Right Ventricle [facility] Implantable Lead Connection Status Connected [facility] Implantable Lead Serial Number [id number] [facility] Implantable Lead Special Function Lead length: 65.00 cm [facility] Anatomical Region Laterality Modality Other, Other 06/28/2024 6:00 PM ANESTHESIA ATTENDING Impressions 06/28/2024 6:00 PM ANESTHESIA ATTENDING Encounter Impression: Title: Normal In-Office: No Events [...] amplitude and pacingthreshold data was reviewed. Crispin HawkinsSIvan CV IMPLANTABLE CARDIAC DEVICE Final Result documented in this encounter Visit Diagnoses Diagnosis Cardiomyopathy Dilated (HCC) Cardiomyopathy (HCC) documented in this encounter Additional Health Concerns Assessment Noted Time PHQ-9 Depression Total Score: 4 11/30/19 21 1:39 PM CDT documented as of this encounter Care Teams Generation Technician Relationship Specialty Start Date End Date Subha Benito M.D., M.S. [address] [place] [phone] PCP - General Family Medicine 03 documented as of this encounter
--- OUTSIDE RECORDS SUMMARY | 2024-07-17 19:28 | XMS_ITS | Encounter Summary ---
Author Organization [facility] Address [address] [place] [address] Care Team Providers Care Loan And Credit Manager Name Role Phone Subha Benito M.D., M.S. Primary Care Provide r Reason for Visit * Reason Comments Post Hospital Follow-up * Appointment Request (Routine) - Closed Specialty Diagnoses / Procedures Referred By Henrry ludwig Referred To Contact Family Medicine Referral ID Status Reason Start Date Expiration Date Visits Re quested Visits Authorized [id number] Closed 06/18/2024 06/18/2025 1 1 Encounter Details Date Type Department Care Team (Late st Contact Info) Description 06/25/2024 1:00 PM SCIENTIFIC INFORMATICS LEADER Office Visit Department of Family Medicine, [address] [place] [address] [place] [phone] Subha Benito M.D., M.S. [address] [place] [phone] Chronic Systolic (Congestive) Heart Failure (HCC) (Primary Dx); Cardiomyopathy Dilated (HCC); Presence Of Automatic (Implantable) Cardiac Defibrillator With Synchronous Cardiac Pacemaker (ICD And AICD) Social History Tobacco Use Types Packs/Day Years Used Date Smoking Tobacco: Never Smokeless Tobacco: Former Chew Quit: 10/21/2023 Tobacco Cessation:Counseling Given: No Alcohol Use Standard Drinks/Week Comments Yes 2 (1 standard drink = 0.6 oz pur e alcohol) [facility] Utilities Answer Date Recorded In the past 12 months has th e electric, gas, [employer], or water pinion-pins threatened to shut off services in your [...] your living situation today? I have a [facility] place to live 01/30/2024 Sex and Gender Information Value Date Recorded Sex Assigned at Male 01/30/2024 10:17 AM CDT Legal Sex Male 5:27 AM SCIENTIFIC INFORMATICS LEADER Gender Identity Male 01/30/2024 10:17 AM CDT Sexual Orientation Straight 01/30/2024 10 :17 AM CDT documented as of this encounter Last Filed Vital Signs Vital Sign Reading Time Taken Comments Blood Pressure 108/65 06/25/2024 12:49 PM SCIENTIFIC INFORMATICS LEADER Pulse 65 06/25/2024 12:49 PM SCIENTIFIC INFORMATICS LEADER Temperature - - Respiratory Rate - - Oxygen Saturation - - Inhaled Oxygen Concentration - - Weight - - Height - - Body Mass Index - - documented in this encounter H&P Notes * Subha Benito M.D., M.S. - 06/25/2024 1:00 PM CST Hospital follow up. Here accompanied by his sister Keyonna Details of recent cardiology visits and hospitalization reviewed. #1 Heart Failure 18 yo well known to me who was in usual state of health until mid-January when he presented to the ER and was admitted with acute decompensated heart failure of unclear etiology (negative VT angiogram, normal cardiac MRI, negative viral serologies). 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 He was started on Metoprolol, Losartan, Jardiance and Spironolactone at that time. Later, his losartan was changed to Entresto. Recent dose adjustment of metoprolol is being well tolerated. On June 18 he had am implantable defibrillator with synchronous pacemaker (ICD and AICD) placed. Procedure was uncomplicated. Device was checked on 06-19-2024. EKG post-procedure NSR and x-ray post-procedure shows device lead in expected location with no pneumothorax. No worsening shortness of breath, dizziness, lightheadedness or syncope. No LE edema. Incision still bandaged - removed today. No fever. Not exercising but planning to restart. Medications reviewed Allergies reviewed Problem list reviewed Social History: Living at home Has a friend that is an exercise partner. No exercise since September 28 but planning to start again today. No tobacco use. Exam: Vitals: 06/25/24 1249 BP: 108/65 Pulse: 65 Neck supple. CV rrr s murmur. UE and LE pulses palpable and symmetric. Lungs CTA with good a/e. LE no edema. Bandage removed: incision from recent implantable device clean, dry, intact. ASSESSMENT / PLAN: #1 Systolic Heart Failure with reduced EF 14%. Clinically compensated today. ECHO scheduled 07-03-24. He is tolerating all medications as prescribed and taking as prescribed. If chest pain, shortness of breath, activity intolerance, LE edema seek prompt re-evaluation. If weight change by > 5 lbs, seek prompt provider recommendation. #2 AICD and ICD Placement Quarterly interrogation as scheduled. #3 Preventive services PCV 18 and Flu shot today. NTIFIC INFORMATICS LEADER documented in this encounter Plan of Treatment Upcoming Encounters Date Type Department Care Team (Late st Contact Info) Description 09/16/2024 10:00 AM CDT Appointment Department of Cardiovascular Diseases in [place], [place] [address] [place] [phone] Priyank Metzger M.D., Ph.D. [address] [place] [phone] documented as of this encounter Visit Diagnoses Diagnosis Chronic Systolic (Congestive) Heart Failure (HCC)- Primary Cardiomyopathy Dilated (HCC) Presence Of Automatic (Implantable) Cardiac Defibrillator With Synchronous Cardiac Pacemaker (ICD And AICD) documented in this encounter Additional Health Concerns Assessment Noted Time PHQ-9 Depression Total Score: 4 11/30/19 21 1:39 PM CDT documented as of this encounter Care Teams Loan And Credit Manager Relationship Specialty Start Date End Date Subha Benito M.D., M.S. [address] [place] [phone] PCP - General Family Medicine 03 documented as of this encounter
[2024-07-17 19:57] LABS: Chloride* 101 mmol/L (96-114); Potassium* 3.2 mmol/L (3.6-5.1); Sodium* 138 mmol/L (135-149)
[2024-07-17 19:59] LABS: Creatinine* 1.2 mg/dL (0.5-1.5); Estimated Glomerular Filt Rate 89 ml/min
[2024-07-17 20:00] LABS: Anion Gap 12 mEq/L (7-15); Blood Urea Nitrogen* 17 mg/dL (5-24); Calcium* 10.1 mg/dL (8.4-10.6); Carbon Dioxide* 25 mmol/L (20-32); Glucose* 103 mg/dL (60-115)
[2024-07-17 20:11] LABS: NT Pro B Type NatriureticPept* 1530 pg/mL
== END 2024-07-18 00:04 | disposition short-term general hospital (02) ==
PROVIDERS: Emergency Provider Family Medicine
DX: R00.2 Palpitations (principal); Z95.810 Presence of automatic (implantable) cardiac defibrillator
CPT/HCPCS: 36415; 71046; 80048; 83880; 85025; 93005; 99284; 99285; J7030